=== PATIENT | male | born 1960 | race Caucasian/White ===

== ENCOUNTER 2024-01-26 10:52 | Inpatient (IN) | payer BC ==
--- OUTSIDE RECORDS SUMMARY | 2024-01-26 10:56 | XMS REPORT | Continuity of Care Document ---
Author Name Unknown Address [address] [facility] [place] [phone] [facility] thconnect Address [address] [facility] [place] [phone] Care Team Providers Care Special Events Planner Name Role Phone Mitchell Bolanos Attending Clinician Unavail able LAMAR CABRERA Attending Clinician Sherrie vailable CHRETIEN_F Attending Clinician Unavailable Iraj_Flavia Attending Clinician Unavailable WATERS_Lissa Attending Clinician Unavailable Libra Blanchard Attending Clinician [phone] TAINA Attending Clinician Unavailable KNOW, DOES_NOT Attending Clinician Unavailable Lamar Cabrera Attending Clinician [phone] KNOW, DOES_NOT Admitting Clinician Unavailable CHRETIEN_F Admitting Clinician Unavailable Iraj_Flavia Admitting Clinician Unavailable WATERS_S Admitting Clinician Unavailable TAINA Admitting Clinician Unavailable Payers Payer Name Policy Type Policy Number Effective Date Expirati on Date Source [place] [id number] 1 2020 00:00:00 [employer] [place] C1 [id number] [facility] Problems Condition Name Condition Details Condition Category Status Onset Date Resolution Date Last Treatment Date Treating Clinician Comments Source Diabetic peripheral neuropathy Diabetic Peripheral Neuropathy Problem Active 4 00:00: 00 [facility] Fatigue Fatigue Problem Active 417 00:00: 00 [facility] Acute sinusitis Acute Sinusitis Problem Active 02-15 00:00: 00 [facility] Radiograph ic calcificat ion Radiograph ic Calcificat ion Problem Active 2021-11 025 00:00: 00 [facility] Hyperchole sterolemia Hyperchole sterolemia Problem Active 2021-11 017 00:00: 00 [facility] Mixed anxiety and depressive disorder Mixed Anxiety and Depressive Disorder Problem Active 2021-11 017 00:00: 00 [facility] Tinnitus Tinnitus Problem Active 2021-11 017 00:00: 00 [facility] Seasonal allergy Seasonal Allergy Problem Active 2021-11 017 00:00: 00 [facility] Dizziness Dizziness Problem Active 2021-11 017 00:00: 00 [facility] Chest pain Chest Pain Problem Active 2021-11 017 00:00: 00 [facility] Pain in right hip joint Pain in Right Hip Joint Problem Active 2021-11 017 00:00: 00 [facility] Anxiety Anxiety Problem Active 2019-11 207 00:00: 00 [facility] Diabetes mellitus Diabetes Mellitus Problem Active 4-15 00:00: 00 [facility] Hyperlipid emia Hyperlipid emia Problem Active 4-13 00:00: 00 [facility] Essential hypertensi on Essential Hypertensi on Problem Active 4-08 00:00: 00 [facility] [id number] Primary osteoarthr itis of right knee Problem Active [facility] [id number] Primary osteoarthr itis of left knee Problem Active [facility] Allergies, Adverse Reactions, Alerts Allergy Name Allergy Type Status Severity Reaction(s) Onset Date Inactive Date Treating Clinician Comments Source codeine DA Active U UNKNOWN 08-16 00:00: 00 [facility] [place] penicill in V DA Active U UNKNOWN 08-16 00:00: 00 [facility] [place] Sulfa (Sulfona mide Antibiot ics) DA Active U 08-16 00:00: 00 [facility] [place] codeine DA Active U 08-16 00:00: 00 [facility] [place] penicill in V DA Active U 08-16 00:00: 00 [facility] [place] Sulfa (Sulfona mide Antibiot ics) DA Active U UNKNOWN 08-16 00:00: 00 [facility] [place] Social History Social Habit Start Date Stop Date Quantity Comments Source Sex Assigned At [facility] History of Tobacco Use [facility] Smoking Status Start Date Stop Date Source Never Smoker [facility] Medications Ordered Medication Name Filled Medication Name Start Date Stop Date Current Medication? Ordering Clinician Indication Dosage Frequency Signature (SIG) Comments Components Source Bystolic Bystolic No Bystolic Gabapentin Gabapentin No Gabapentin Lisinopril Lisinopril No Lisinopril cetirizine 10 mg tablet TAKE 1 TABLET BY MOUTH ONCE DAILY FOR 90 DAYS cetirizine 10 mg tablet TAKE 1 TABLET BY MOUTH ONCE DAILY FOR 90 DAYS No cetirizine 10 mg tablet TAKE 1 TABLET BY MOUTH ONCE DAILY FOR 90 DAYS [facility] escitalopra m 10 mg tablet TAKE 1 TABLET BY MOUTH ONCE DAILY FOR 90 DAYS escitalopra m 10 mg tablet TAKE 1 TABLET BY MOUTH ONCE DAILY FOR 90 DAYS No escitalopr am 10 mg tablet TAKE 1 TABLET BY MOUTH ONCE DAILY FOR 90 DAYS [facility] Farxiga 10 mg tablet Farxiga 10 mg tablet No Farxiga 10 mg tablet [facility] fluconazole 150 mg tablet TAKE 1 TABLET BY MOUTH ONCE A WEEK fluconazole 150 mg tablet TAKE 1 TABLET BY MOUTH ONCE A WEEK No fluconazol e 150 mg tablet TAKE 1 TABLET BY MOUTH ONCE A WEEK [facility] fluticasone propionate 50 mcg/actuati on nasal spray,suspe nsion USE 1 SPRAY(S) IN EACH NOSTRIL ONCE DAILY fluticasone propionate 50 mcg/actuati on nasal spray,suspe nsion USE 1 SPRAY(S) IN EACH NOSTRIL ONCE DAILY No fluticason e propionate 50 mcg/actuat ion nasal spray,susp ension USE 1 SPRAY(S) IN EACH NOSTRIL ONCE DAILY [facility] Humalog Mix 75-25 KwikPen U-100 insulin 100 unit/mL subcutaneou s pen INJECT 30 UNITS SUBCUTANEOU SLY TWICE DAILY DIRECTED Humalog Mix 75-25 KwikPen U-100 insulin 100 unit/mL subcutaneou s pen INJECT 30 UNITS SUBCUTANEOU SLY TWICE DAILY DIRECTED No Humalog Mix 75-25 KwikPen U-100 insulin 100 unit/mL subcutaneo us pen INJECT 30 UNITS SUBCUTANEO USLY TWICE DAILY DIRECTED [facility] lisinopril 10 mg tablet lisinopril 10 mg tablet No lisinopril 10 mg tablet [facility] magnesium oxide 400 mg (241.3 mg magnesium) tablet TAKE 1 TABLET BY MOUTH ONCE DAILY AT BEDTIME magnesium oxide 400 mg (241.3 mg magnesium) tablet TAKE 1 TABLET BY MOUTH ONCE DAILY AT BEDTIME No magnesium oxide 400 mg (241.3 mg magnesium) tablet TAKE 1 TABLET BY MOUTH ONCE DAILY AT BEDTIME [facility] montelukast 10 mg tablet TAKE 1 TABLET BY MOUTH ONCE DAILY DIRECTED FOR 90 DAYS montelukast 10 mg tablet TAKE 1 TABLET BY MOUTH ONCE DAILY DIRECTED FOR 90 DAYS No montelukas t 10 mg tablet TAKE 1 TABLET BY MOUTH ONCE DAILY DIRECTED FOR 90 DAYS [facility] nebivolol 5 mg tablet TAKE 1 TABLET BY MOUTH ONCE DAILY IN THE MORNING nebivolol 5 mg tablet TAKE 1 TABLET BY MOUTH ONCE DAILY IN THE MORNING No nebivolol 5 mg tablet TAKE 1 TABLET BY MOUTH ONCE DAILY IN THE MORNING [facility] rosuvastati n 40 mg tablet TAKE 1 TABLET BY MOUTH ONCE DAILY IN THE EVENING FOR 90 DAYS rosuvastati n 40 mg tablet TAKE 1 TABLET BY MOUTH ONCE DAILY IN THE EVENING FOR 90 DAYS No rosuvastat in 40 mg tablet TAKE 1 TABLET BY MOUTH ONCE DAILY IN THE EVENING FOR 90 DAYS [facility] Trulicity 1.5 mg/0.5 mL subcutaneou s pen injector INJECT 1 SYRINGE SUBCUTANEOU SLY ONCE A WEEK Trulicity 1.5 mg/0.5 mL subcutaneou s pen injector INJECT 1 SYRINGE SUBCUTANEOU SLY ONCE A WEEK No Trulicity 1.5 mg/0.5 mL subcutaneo us pen injector INJECT 1 SYRINGE SUBCUTANEO USLY ONCE A WEEK [facility] cetirizine 10 mg tablet TAKE 1 TABLET BY MOUTH ONCE DAILY FOR 90 DAYS cetirizine 10 mg tablet TAKE 1 TABLET BY MOUTH ONCE DAILY FOR 90 DAYS No cetirizine 10 mg tablet TAKE 1 TABLET BY MOUTH ONCE DAILY FOR 90 DAYS [facility] escitalopra m 10 mg tablet TAKE 1 TABLET BY MOUTH ONCE DAILY FOR 90 DAYS escitalopra m 10 mg tablet TAKE 1 TABLET BY MOUTH ONCE DAILY FOR 90 DAYS No escitalopr am 10 mg tablet TAKE 1 TABLET BY MOUTH ONCE DAILY FOR 90 DAYS [facility] Farxiga 10 mg tablet Farxiga 10 mg tablet No Farxiga 10 mg tablet [facility] fluconazole 150 mg tablet TAKE 1 TABLET BY MOUTH ONCE A WEEK fluconazole 150 mg tablet TAKE 1 TABLET BY MOUTH ONCE A WEEK No fluconazol e 150 mg tablet TAKE 1 TABLET BY MOUTH ONCE A WEEK [facility] fluticasone propionate 50 mcg/actuati on nasal spray,suspe nsion USE 1 SPRAY(S) IN EACH NOSTRIL ONCE DAILY fluticasone propionate 50 mcg/actuati on nasal spray,suspe nsion USE 1 SPRAY(S) IN EACH NOSTRIL ONCE DAILY No fluticason e propionate 50 mcg/actuat ion nasal spray,susp ension USE 1 SPRAY(S) IN EACH NOSTRIL ONCE DAILY [facility] Humalog Mix 75-25 KwikPen U-100 insulin 100 unit/mL subcutaneou s pen INJECT 30 UNITS SUBCUTANEOU SLY TWICE DAILY DIRECTED Humalog Mix 75-25 KwikPen U-100 insulin 100 unit/mL subcutaneou s pen INJECT 30 UNITS SUBCUTANEOU SLY TWICE DAILY DIRECTED No Humalog Mix 75-25 KwikPen U-100 insulin 100 unit/mL subcutaneo us pen INJECT 30 UNITS SUBCUTANEO USLY TWICE DAILY DIRECTED [facility] lisinopril 10 mg tablet lisinopril 10 mg tablet No lisinopril 10 mg tablet [facility] magnesium oxide 400 mg (241.3 mg magnesium) tablet TAKE 1 TABLET BY MOUTH ONCE DAILY AT BEDTIME magnesium oxide 400 mg (241.3 mg magnesium) tablet TAKE 1 TABLET BY MOUTH ONCE DAILY AT BEDTIME No magnesium oxide 400 mg (241.3 mg magnesium) tablet TAKE 1 TABLET BY MOUTH ONCE DAILY AT BEDTIME [facility] montelukast 10 mg tablet TAKE 1 TABLET BY MOUTH ONCE DAILY DIRECTED FOR 90 DAYS montelukast 10 mg tablet TAKE 1 TABLET BY MOUTH ONCE DAILY DIRECTED FOR 90 DAYS No montelukas t 10 mg tablet TAKE 1 TABLET BY MOUTH ONCE DAILY DIRECTED FOR 90 DAYS [facility] nebivolol 5 mg tablet TAKE 1 TABLET BY MOUTH ONCE DAILY IN THE MORNING nebivolol 5 mg tablet TAKE 1 TABLET BY MOUTH ONCE DAILY IN THE MORNING No nebivolol 5 mg tablet TAKE 1 TABLET BY MOUTH ONCE DAILY IN THE MORNING [facility] rosuvastati n 40 mg tablet TAKE 1 TABLET BY MOUTH ONCE DAILY IN THE EVENING FOR 90 DAYS rosuvastati n 40 mg tablet TAKE 1 TABLET BY MOUTH ONCE DAILY IN THE EVENING FOR 90 DAYS No rosuvastat in 40 mg tablet TAKE 1 TABLET BY MOUTH ONCE DAILY IN THE EVENING FOR 90 DAYS [facility] Trulicity 1.5 mg/0.5 mL subcutaneou s pen injector INJECT 1 SYRINGE SUBCUTANEOU SLY ONCE A WEEK Trulicity 1.5 mg/0.5 mL subcutaneou s pen injector INJECT 1 SYRINGE SUBCUTANEOU SLY ONCE A WEEK No Trulicity 1.5 mg/0.5 mL subcutaneo us pen injector INJECT 1 SYRINGE SUBCUTANEO USLY ONCE A WEEK [facility] cetirizine 10 mg tablet TAKE 1 TABLET BY MOUTH ONCE DAILY FOR 90 DAYS cetirizine 10 mg tablet TAKE 1 TABLET BY MOUTH ONCE DAILY FOR 90 DAYS No cetirizine 10 mg tablet TAKE 1 TABLET BY MOUTH ONCE DAILY FOR 90 DAYS [facility] escitalopra m 10 mg tablet TAKE 1 TABLET BY MOUTH ONCE DAILY FOR 90 DAYS escitalopra m 10 mg tablet TAKE 1 TABLET BY MOUTH ONCE DAILY FOR 90 DAYS No escitalopr am 10 mg tablet TAKE 1 TABLET BY MOUTH ONCE DAILY FOR 90 DAYS [facility] Farxiga 10 mg tablet Farxiga 10 mg tablet No Farxiga 10 mg tablet [facility] fluconazole 150 mg tablet TAKE 1 TABLET BY MOUTH ONCE A WEEK fluconazole 150 mg tablet TAKE 1 TABLET BY MOUTH ONCE A WEEK No fluconazol e 150 mg tablet TAKE 1 TABLET BY MOUTH ONCE A WEEK [facility] fluticasone propionate 50 mcg/actuati on nasal spray,suspe nsion USE 1 SPRAY(S) IN EACH NOSTRIL ONCE DAILY fluticasone propionate 50 mcg/actuati on nasal spray,suspe nsion USE 1 SPRAY(S) IN EACH NOSTRIL ONCE DAILY No fluticason e propionate 50 mcg/actuat ion nasal spray,susp ension USE 1 SPRAY(S) IN EACH NOSTRIL ONCE DAILY [facility] Humalog Mix 75-25 KwikPen U-100 insulin 100 unit/mL subcutaneou s pen INJECT 30 UNITS SUBCUTANEOU SLY TWICE DAILY DIRECTED Humalog Mix 75-25 KwikPen U-100 insulin 100 unit/mL subcutaneou s pen INJECT 30 UNITS SUBCUTANEOU SLY TWICE DAILY DIRECTED No Humalog Mix 75-25 KwikPen U-100 insulin 100 unit/mL subcutaneo us pen INJECT 30 UNITS SUBCUTANEO USLY TWICE DAILY DIRECTED [facility] lisinopril 10 mg tablet lisinopril 10 mg tablet No lisinopril 10 mg tablet [facility] magnesium oxide 400 mg (241.3 mg magnesium) tablet TAKE 1 TABLET BY MOUTH ONCE DAILY AT BEDTIME magnesium oxide 400 mg (241.3 mg magnesium) tablet TAKE 1 TABLET BY MOUTH ONCE DAILY AT BEDTIME No magnesium oxide 400 mg (241.3 mg magnesium) tablet TAKE 1 TABLET BY MOUTH ONCE DAILY AT BEDTIME [facility] montelukast 10 mg tablet TAKE 1 TABLET BY MOUTH ONCE DAILY DIRECTED FOR 90 DAYS montelukast 10 mg tablet TAKE 1 TABLET BY MOUTH ONCE DAILY DIRECTED FOR 90 DAYS No montelukas t 10 mg tablet TAKE 1 TABLET BY MOUTH ONCE DAILY DIRECTED FOR 90 DAYS [facility] nebivolol 5 mg tablet TAKE 1 TABLET BY MOUTH ONCE DAILY IN THE MORNING nebivolol 5 mg tablet TAKE 1 TABLET BY MOUTH ONCE DAILY IN THE MORNING No nebivolol 5 mg tablet TAKE 1 TABLET BY MOUTH ONCE DAILY IN THE MORNING [facility] rosuvastati n 40 mg tablet TAKE 1 TABLET BY MOUTH ONCE DAILY IN THE EVENING FOR 90 DAYS rosuvastati n 40 mg tablet TAKE 1 TABLET BY MOUTH ONCE DAILY IN THE EVENING FOR 90 DAYS No rosuvastat in 40 mg tablet TAKE 1 TABLET BY MOUTH ONCE DAILY IN THE EVENING FOR 90 DAYS [facility] Trulicity 1.5 mg/0.5 mL subcutaneou s pen injector INJECT 1 SYRINGE SUBCUTANEOU SLY ONCE A WEEK Trulicity 1.5 mg/0.5 mL subcutaneou s pen injector INJECT 1 SYRINGE SUBCUTANEOU SLY ONCE A WEEK No Trulicity 1.5 mg/0.5 mL subcutaneo us pen injector INJECT 1 SYRINGE SUBCUTANEO USLY ONCE A WEEK [facility] Bystolic 5 mg tablet TAKE 1 TABLET BY MOUTH ONCE DAILY IN THE MORNING Bystolic 5 mg tablet TAKE 1 TABLET BY MOUTH ONCE DAILY IN THE MORNING No Bystolic 5 mg tablet TAKE 1 TABLET BY MOUTH ONCE DAILY IN THE MORNING [facility] Humalog Mix 75-25 KwikPen U-100 insulin 100 unit/mL subcutaneou s pen INJECT 26 UNITS SUBCUTANEOU SLY TWICE DAILY DIRECTED Humalog Mix 75-25 KwikPen U-100 insulin 100 unit/mL subcutaneou s pen INJECT 26 UNITS SUBCUTANEOU SLY TWICE DAILY DIRECTED No Humalog Mix 75-25 KwikPen U-100 insulin 100 unit/mL subcutaneo us pen INJECT 26 UNITS SUBCUTANEO USLY TWICE DAILY DIRECTED [facility] lisinopril 10 mg tablet Take 1 tablet by mouth once daily lisinopril 10 mg tablet Take 1 tablet by mouth once daily No lisinopril 10 mg tablet Take 1 tablet by mouth once daily [facility] meclizine 12.5 mg tablet Take 1 tablet every 6-8 hours by oral route as needed for 10 days. meclizine 12.5 mg tablet Take 1 tablet every 6-8 hours by oral route as needed for 10 days. No 1 Q7H meclizine 12.5 mg tablet Take 1 tablet every 6-8 hours by oral route as needed for 10 days. [facility] metformin 1,000 mg tablet TAKE 1 TABLET BY MOUTH TWICE DAILY DIRECTED metformin 1,000 mg tablet TAKE 1 TABLET BY MOUTH TWICE DAILY DIRECTED No metformin 1,000 mg tablet TAKE 1 TABLET BY MOUTH TWICE DAILY DIRECTED [facility] montelukast 10 mg tablet Take 1 tablet every day by oral route as directed for 90 days. montelukast 10 mg tablet Take 1 tablet every day by oral route as directed for 90 days. No 1 Q1D montelukas t 10 mg tablet Take 1 tablet every day by oral route as directed for 90 days. [facility] nitrofurant oin monohydrate /macrocryst als 100 mg capsule Take 1 capsule every 12 hours by oral route as directed. nitrofurant oin monohydrate /macrocryst als 100 mg capsule Take 1 capsule every 12 hours by oral route as directed. No 1capsul e(s) Q12H nitrofuran toin monohydrat e/macrocry stals 100 mg capsule Take 1 capsule every 12 hours by oral route as directed. [facility] paroxetine 20 mg tablet TAKE 1 TABLET BY MOUTH ONCE DAILY IN THE MORNING FOR 90 DAYS paroxetine 20 mg tablet TAKE 1 TABLET BY MOUTH ONCE DAILY IN THE MORNING FOR 90 DAYS No paroxetine 20 mg tablet TAKE 1 TABLET BY MOUTH ONCE DAILY IN THE MORNING FOR 90 DAYS [facility] pregabalin 75 mg capsule Take 1 capsule every day by oral route as directed for 30 days. pregabalin 75 mg capsule Take 1 capsule every day by oral route as directed for 30 days. No 1capsul e(s) Q1D pregabalin 75 mg capsule Take 1 capsule every day by oral route as directed for 30 days. [facility] rosuvastati n 20 mg tablet TAKE 1 TABLET BY MOUTH ONCE DAILY DIRECTED FOR 90 DAYS rosuvastati n 20 mg tablet TAKE 1 TABLET BY MOUTH ONCE DAILY DIRECTED FOR 90 DAYS No rosuvastat in 20 mg tablet TAKE 1 TABLET BY MOUTH ONCE DAILY DIRECTED FOR 90 DAYS [facility] Trulicity 1.5 mg/0.5 mL subcutaneou s pen injector INJECT 1 SYRINGE SUBCUTANEOU SLY ONCE A WEEK Trulicity 1.5 mg/0.5 mL subcutaneou s pen injector INJECT 1 SYRINGE SUBCUTANEOU SLY ONCE A WEEK No Trulicity 1.5 mg/0.5 mL subcutaneo us pen injector INJECT 1 SYRINGE SUBCUTANEO USLY ONCE A WEEK [facility] Bystolic 5 mg tablet TAKE 1 TABLET BY MOUTH ONCE DAILY IN THE MORNING Bystolic 5 mg tablet TAKE 1 TABLET BY MOUTH ONCE DAILY IN THE MORNING No Bystolic 5 mg tablet TAKE 1 TABLET BY MOUTH ONCE DAILY IN THE MORNING [facility] Humalog Mix 75-25 KwikPen U-100 insulin 100 unit/mL subcutaneou s pen INJECT 26 UNITS SUBCUTANEOU SLY TWICE DAILY DIRECTED Humalog Mix 75-25 KwikPen U-100 insulin 100 unit/mL subcutaneou s pen INJECT 26 UNITS SUBCUTANEOU SLY TWICE DAILY DIRECTED No Humalog Mix 75-25 KwikPen U-100 insulin 100 unit/mL subcutaneo us pen INJECT 26 UNITS SUBCUTANEO USLY TWICE DAILY DIRECTED [facility] lisinopril 10 mg tablet Take 1 tablet by mouth once daily lisinopril 10 mg tablet Take 1 tablet by mouth once daily No lisinopril 10 mg tablet Take 1 tablet by mouth once daily [facility] meclizine 12.5 mg tablet Take 1 tablet every 6-8 hours by oral route as needed for 10 days. meclizine 12.5 mg tablet Take 1 tablet every 6-8 hours by oral route as needed for 10 days. No 1 Q7H meclizine 12.5 mg tablet Take 1 tablet every 6-8 hours by oral route as needed for 10 days. [facility] metformin 1,000 mg tablet TAKE 1 TABLET BY MOUTH TWICE DAILY DIRECTED metformin 1,000 mg tablet TAKE 1 TABLET BY MOUTH TWICE DAILY DIRECTED No metformin 1,000 mg tablet TAKE 1 TABLET BY MOUTH TWICE DAILY DIRECTED [facility] montelukast 10 mg tablet Take 1 tablet every day by oral route as directed for 90 days. montelukast 10 mg tablet Take 1 tablet every day by oral route as directed for 90 days. No 1 Q1D montelukas t 10 mg tablet Take 1 tablet every day by oral route as directed for 90 days. [facility] nitrofurant oin monohydrate /macrocryst als 100 mg capsule Take 1 capsule every 12 hours by oral route as directed. nitrofurant oin monohydrate /macrocryst als 100 mg capsule Take 1 capsule every 12 hours by oral route as directed. No 1capsul e(s) Q12H nitrofuran toin monohydrat e/macrocry stals 100 mg capsule Take 1 capsule every 12 hours by oral route as directed. [facility] paroxetine 20 mg tablet TAKE 1 TABLET BY MOUTH ONCE DAILY IN THE MORNING FOR 90 DAYS paroxetine 20 mg tablet TAKE 1 TABLET BY MOUTH ONCE DAILY IN THE MORNING FOR 90 DAYS No paroxetine 20 mg tablet TAKE 1 TABLET BY MOUTH ONCE DAILY IN THE MORNING FOR 90 DAYS [facility] pregabalin 75 mg capsule Take 1 capsule every day by oral route as directed for 30 days. pregabalin 75 mg capsule Take 1 capsule every day by oral route as directed for 30 days. No 1capsul e(s) Q1D pregabalin 75 mg capsule Take 1 capsule every day by oral route as directed for 30 days. [facility] rosuvastati n 20 mg tablet TAKE 1 TABLET BY MOUTH ONCE DAILY DIRECTED FOR 90 DAYS rosuvastati n 20 mg tablet TAKE 1 TABLET BY MOUTH ONCE DAILY DIRECTED FOR 90 DAYS No rosuvastat in 20 mg tablet TAKE 1 TABLET BY MOUTH ONCE DAILY DIRECTED FOR 90 DAYS [facility] Trulicity 1.5 mg/0.5 mL subcutaneou s pen injector INJECT 1 SYRINGE SUBCUTANEOU SLY ONCE A WEEK Trulicity 1.5 mg/0.5 mL subcutaneou s pen injector INJECT 1 SYRINGE SUBCUTANEOU SLY ONCE A WEEK No Trulicity 1.5 mg/0.5 mL subcutaneo us pen injector INJECT 1 SYRINGE SUBCUTANEO USLY ONCE A WEEK [facility] Bystolic 5 mg tablet TAKE 1 TABLET BY MOUTH ONCE DAILY IN THE MORNING Bystolic 5 mg tablet TAKE 1 TABLET BY MOUTH ONCE DAILY IN THE MORNING No Bystolic 5 mg tablet TAKE 1 TABLET BY MOUTH ONCE DAILY IN THE MORNING [facility] Humalog Mix 75-25 KwikPen U-100 insulin 100 unit/mL subcutaneou s pen INJECT 26 UNITS SUBCUTANEOU SLY TWICE DAILY DIRECTED Humalog Mix 75-25 KwikPen U-100 insulin 100 unit/mL subcutaneou s pen INJECT 26 UNITS SUBCUTANEOU SLY TWICE DAILY DIRECTED No Humalog Mix 75-25 KwikPen U-100 insulin 100 unit/mL subcutaneo us pen INJECT 26 UNITS SUBCUTANEO USLY TWICE DAILY DIRECTED [facility] lisinopril 10 mg tablet TAKE 1 TABLET BY MOUTH ONCE DAILY lisinopril 10 mg tablet TAKE 1 TABLET BY MOUTH ONCE DAILY No lisinopril 10 mg tablet TAKE 1 TABLET BY MOUTH ONCE DAILY [facility] meclizine 12.5 mg tablet TAKE 1 TABLET BY MOUTH EVERY 6 TO 8 HOURS NEEDED FOR 10 DAYS meclizine 12.5 mg tablet TAKE 1 TABLET BY MOUTH EVERY 6 TO 8 HOURS NEEDED FOR 10 DAYS No meclizine 12.5 mg tablet TAKE 1 TABLET BY MOUTH EVERY 6 TO 8 HOURS NEEDED FOR 10 DAYS [facility] metformin 1,000 mg tablet TAKE 1 TABLET BY MOUTH TWICE DAILY DIRECTED metformin 1,000 mg tablet TAKE 1 TABLET BY MOUTH TWICE DAILY DIRECTED No metformin 1,000 mg tablet TAKE 1 TABLET BY MOUTH TWICE DAILY DIRECTED [facility] montelukast 10 mg tablet TAKE 1 TABLET BY MOUTH ONCE DAILY DIRECTED FOR 90 DAYS montelukast 10 mg tablet TAKE 1 TABLET BY MOUTH ONCE DAILY DIRECTED FOR 90 DAYS No montelukas t 10 mg tablet TAKE 1 TABLET BY MOUTH ONCE DAILY DIRECTED FOR 90 DAYS [facility] paroxetine 20 mg tablet TAKE 1 TABLET BY MOUTH ONCE DAILY IN THE MORNING paroxetine 20 mg tablet TAKE 1 TABLET BY MOUTH ONCE DAILY IN THE MORNING No paroxetine 20 mg tablet TAKE 1 TABLET BY MOUTH ONCE DAILY IN THE MORNING [facility] pregabalin 75 mg capsule TAKE 1 CAPSULE BY MOUTH ONCE DAILY pregabalin 75 mg capsule TAKE 1 CAPSULE BY MOUTH ONCE DAILY No pregabalin 75 mg capsule TAKE 1 CAPSULE BY MOUTH ONCE DAILY [facility] rosuvastati n 20 mg tablet TAKE 1 TABLET BY MOUTH ONCE DAILY DIRECTED FOR 90 DAYS rosuvastati n 20 mg tablet TAKE 1 TABLET BY MOUTH ONCE DAILY DIRECTED FOR 90 DAYS No rosuvastat in 20 mg tablet TAKE 1 TABLET BY MOUTH ONCE DAILY DIRECTED FOR 90 DAYS [facility] rosuvastati n 40 mg tablet Take 1 tablet every day by oral route in the evening for 90 days. rosuvastati n 40 mg tablet Take 1 tablet every day by oral route in the evening for 90 days. No 1 Q1D rosuvastat in 40 mg tablet Take 1 tablet every day by oral route in the evening for 90 days. [facility] Trulicity 1.5 mg/0.5 mL subcutaneou s pen injector INJECT 1 PREFILLED SYRINGE SUBCUTANEOU SLY ONCE A WEEK Trulicity 1.5 mg/0.5 mL subcutaneou s pen injector INJECT 1 PREFILLED SYRINGE SUBCUTANEOU SLY ONCE A WEEK No Trulicity 1.5 mg/0.5 mL subcutaneo us pen injector INJECT 1 PREFILLED SYRINGE SUBCUTANEO USLY ONCE A WEEK [facility] Bystolic 5 mg tablet TAKE 1 TABLET BY MOUTH ONCE DAILY IN THE MORNING Bystolic 5 mg tablet TAKE 1 TABLET BY MOUTH ONCE DAILY IN THE MORNING No Bystolic 5 mg tablet TAKE 1 TABLET BY MOUTH ONCE DAILY IN THE MORNING [facility] Humalog Mix 75-25 KwikPen U-100 insulin 100 unit/mL subcutaneou s pen INJECT 26 UNITS SUBCUTANEOU SLY TWICE DAILY DIRECTED Humalog Mix 75-25 KwikPen U-100 insulin 100 unit/mL subcutaneou s pen INJECT 26 UNITS SUBCUTANEOU SLY TWICE DAILY DIRECTED No Humalog Mix 75-25 KwikPen U-100 insulin 100 unit/mL subcutaneo us pen INJECT 26 UNITS SUBCUTANEO USLY TWICE DAILY DIRECTED [facility] lisinopril 10 mg tablet TAKE 1 TABLET BY MOUTH ONCE DAILY lisinopril 10 mg tablet TAKE 1 TABLET BY MOUTH ONCE DAILY No lisinopril 10 mg tablet TAKE 1 TABLET BY MOUTH ONCE DAILY [facility] meclizine 12.5 mg tablet TAKE 1 TABLET BY MOUTH EVERY 6 TO 8 HOURS NEEDED FOR 10 DAYS meclizine 12.5 mg tablet TAKE 1 TABLET BY MOUTH EVERY 6 TO 8 HOURS NEEDED FOR 10 DAYS No meclizine 12.5 mg tablet TAKE 1 TABLET BY MOUTH EVERY 6 TO 8 HOURS NEEDED FOR 10 DAYS [facility] metformin 1,000 mg tablet TAKE 1 TABLET BY MOUTH TWICE DAILY DIRECTED metformin 1,000 mg tablet TAKE 1 TABLET BY MOUTH TWICE DAILY DIRECTED No metformin 1,000 mg tablet TAKE 1 TABLET BY MOUTH TWICE DAILY DIRECTED [facility] montelukast 10 mg tablet TAKE 1 TABLET BY MOUTH ONCE DAILY DIRECTED FOR 90 DAYS montelukast 10 mg tablet TAKE 1 TABLET BY MOUTH ONCE DAILY DIRECTED FOR 90 DAYS No montelukas t 10 mg tablet TAKE 1 TABLET BY MOUTH ONCE DAILY DIRECTED FOR 90 DAYS [facility] paroxetine 20 mg tablet TAKE 1 TABLET BY MOUTH ONCE DAILY IN THE MORNING paroxetine 20 mg tablet TAKE 1 TABLET BY MOUTH ONCE DAILY IN THE MORNING No paroxetine 20 mg tablet TAKE 1 TABLET BY MOUTH ONCE DAILY IN THE MORNING [facility] pregabalin 75 mg capsule TAKE 1 CAPSULE BY MOUTH ONCE DAILY pregabalin 75 mg capsule TAKE 1 CAPSULE BY MOUTH ONCE DAILY No pregabalin 75 mg capsule TAKE 1 CAPSULE BY MOUTH ONCE DAILY [facility] rosuvastati n 40 mg tablet Take 1 tablet every day by oral route in the evening for 90 days. rosuvastati n 40 mg tablet Take 1 tablet every day by oral route in the evening for 90 days. No 1 Q1D rosuvastat in 40 mg tablet Take 1 tablet every day by oral route in the evening for 90 days. [facility] Trulicity 1.5 mg/0.5 mL subcutaneou s pen injector INJECT 1 PREFILLED SYRINGE SUBCUTANEOU SLY ONCE A WEEK Trulicity 1.5 mg/0.5 mL subcutaneou s pen injector INJECT 1 PREFILLED SYRINGE SUBCUTANEOU SLY ONCE A WEEK No Trulicity 1.5 mg/0.5 mL subcutaneo us pen injector INJECT 1 PREFILLED SYRINGE SUBCUTANEO USLY ONCE A WEEK [facility] Bystolic 5 mg tablet TAKE 1 TABLET BY MOUTH ONCE DAILY IN THE MORNING Bystolic 5 mg tablet TAKE 1 TABLET BY MOUTH ONCE DAILY IN THE MORNING No Bystolic 5 mg tablet TAKE 1 TABLET BY MOUTH ONCE DAILY IN THE MORNING [facility] Humalog Mix 75-25 KwikPen U-100 insulin 100 unit/mL subcutaneou s pen INJECT 26 UNITS SUBCUTANEOU SLY TWICE DAILY DIRECTED Humalog Mix 75-25 KwikPen U-100 insulin 100 unit/mL subcutaneou s pen INJECT 26 UNITS SUBCUTANEOU SLY TWICE DAILY DIRECTED No Humalog Mix 75-25 KwikPen U-100 insulin 100 unit/mL subcutaneo us pen INJECT 26 UNITS SUBCUTANEO USLY TWICE DAILY DIRECTED [facility] ivermectin 3 mg tablet Take 1 tablet twice a day by oral route as directed for 5 days. ivermectin 3 mg tablet Take 1 tablet twice a day by oral route as directed for 5 days. No 1 BID ivermectin 3 mg tablet Take 1 tablet twice a day by oral route as directed for 5 days. [facility] lisinopril 10 mg tablet TAKE 1 TABLET BY MOUTH ONCE DAILY lisinopril 10 mg tablet TAKE 1 TABLET BY MOUTH ONCE DAILY No lisinopril 10 mg tablet TAKE 1 TABLET BY MOUTH ONCE DAILY [facility] meclizine 12.5 mg tablet TAKE 1 TABLET BY MOUTH EVERY 6 TO 8 HOURS NEEDED FOR 10 DAYS meclizine 12.5 mg tablet TAKE 1 TABLET BY MOUTH EVERY 6 TO 8 HOURS NEEDED FOR 10 DAYS No meclizine 12.5 mg tablet TAKE 1 TABLET BY MOUTH EVERY 6 TO 8 HOURS NEEDED FOR 10 DAYS [facility] metformin 1,000 mg tablet TAKE 1 TABLET BY MOUTH TWICE DAILY DIRECTED metformin 1,000 mg tablet TAKE 1 TABLET BY MOUTH TWICE DAILY DIRECTED No metformin 1,000 mg tablet TAKE 1 TABLET BY MOUTH TWICE DAILY DIRECTED [facility] montelukast 10 mg tablet TAKE 1 TABLET BY MOUTH ONCE DAILY DIRECTED FOR 90 DAYS montelukast 10 mg tablet TAKE 1 TABLET BY MOUTH ONCE DAILY DIRECTED FOR 90 DAYS No montelukas t 10 mg tablet TAKE 1 TABLET BY MOUTH ONCE DAILY DIRECTED FOR 90 DAYS [facility] paroxetine 20 mg tablet TAKE 1 TABLET BY MOUTH ONCE DAILY IN THE MORNING paroxetine 20 mg tablet TAKE 1 TABLET BY MOUTH ONCE DAILY IN THE MORNING No paroxetine 20 mg tablet TAKE 1 TABLET BY MOUTH ONCE DAILY IN THE MORNING [facility] prednisone 20 mg tablet Take 1 tablet twice a day by oral route as directed for 7 days. prednisone 20 mg tablet Take 1 tablet twice a day by oral route as directed for 7 days. No 1 BID prednisone 20 mg tablet Take 1 tablet twice a day by oral route as directed for 7 days. [facility] pregabalin 75 mg capsule Take 1 capsule by mouth once daily pregabalin 75 mg capsule Take 1 capsule by mouth once daily No pregabalin 75 mg capsule Take 1 capsule by mouth once daily [facility] rosuvastati n 40 mg tablet TAKE 1 TABLET BY MOUTH ONCE DAILY IN THE EVENING FOR 90 DAYS rosuvastati n 40 mg tablet TAKE 1 TABLET BY MOUTH ONCE DAILY IN THE EVENING FOR 90 DAYS No rosuvastat in 40 mg tablet TAKE 1 TABLET BY MOUTH ONCE DAILY IN THE EVENING FOR 90 DAYS [facility] Trulicity 1.5 mg/0.5 mL subcutaneou s pen injector INJECT 1 PREFILLED SYRINGE SUBCUTANEOU SLY ONCE A WEEK Trulicity 1.5 mg/0.5 mL subcutaneou s pen injector INJECT 1 PREFILLED SYRINGE SUBCUTANEOU SLY ONCE A WEEK No Trulicity 1.5 mg/0.5 mL subcutaneo us pen injector INJECT 1 PREFILLED SYRINGE SUBCUTANEO USLY ONCE A WEEK [facility] Zithromax Z-Charles 250 mg tablet TAKE 2 TABLETS (500 MG) BY ORAL ROUTE ONCE DAILY FOR 1 DAY THEN 1 TABLET (250 MG) BY ORAL ROUTE ONCE DAILY FOR 4 DAYS Zithromax Z-Charles 250 mg tablet TAKE 2 TABLETS (500 MG) BY ORAL ROUTE ONCE DAILY FOR 1 DAY THEN 1 TABLET (250 MG) BY ORAL ROUTE ONCE DAILY FOR 4 DAYS No Zithromax Z-Charles 250 mg tablet TAKE 2 TABLETS (500 MG) BY ORAL ROUTE ONCE DAILY FOR 1 DAY THEN 1 TABLET (250 MG) BY ORAL ROUTE ONCE DAILY FOR 4 DAYS [facility] escitalopra m 10 mg tablet Take 1 tablet every day by oral route for 90 days. escitalopra m 10 mg tablet Take 1 tablet every day by oral route for 90 days. No 1 Q1D escitalopr am 10 mg tablet Take 1 tablet every day by oral route for 90 days. [facility] Farxiga 5 mg tablet Take 1 tablet every day by oral route for 30 days. Farxiga 5 mg tablet Take 1 tablet every day by oral route for 30 days. No 1 Q1D Farxiga 5 mg tablet Take 1 tablet every day by oral route for 30 days. [facility] fluconazole 150 mg tablet Take 1 tablet every week by oral route. fluconazole 150 mg tablet Take 1 tablet every week by oral route. No 1 Q1W fluconazol e 150 mg tablet Take 1 tablet every week by oral route. [facility] gabapentin 600 mg tablet Take 1 tablet 3 times a day by oral route for 90 days. gabapentin 600 mg tablet Take 1 tablet 3 times a day by oral route for 90 days. No 1 TID gabapentin 600 mg tablet Take 1 tablet 3 times a day by oral route for 90 days. [facility] Humalog Mix 75-25 KwikPen U-100 insulin 100 unit/mL subcutaneou s pen INJECT 28 UNITS SUBCUTANEOU SLY TWICE DAILY DIRECTED Humalog Mix 75-25 KwikPen U-100 insulin 100 unit/mL subcutaneou s pen INJECT 28 UNITS SUBCUTANEOU SLY TWICE DAILY DIRECTED No Humalog Mix 75-25 KwikPen U-100 insulin 100 unit/mL subcutaneo us pen INJECT 28 UNITS SUBCUTANEO USLY TWICE DAILY DIRECTED [facility] lisinopril 10 mg tablet TAKE 1 TABLET BY MOUTH ONCE DAILY no more refills until you see libra blanchard. lisinopril 10 mg tablet TAKE 1 TABLET BY MOUTH ONCE DAILY no more refills until you see libra blanchard. No lisinopril 10 mg tablet TAKE 1 TABLET BY MOUTH ONCE DAILY no more refills until you see libra blanchard. [facility] magnesium 400 mg (as magnesium oxide) tablet Take 1 tablet every day by oral route at bedtime for 90 days. magnesium 400 mg (as magnesium oxide) tablet Take 1 tablet every day by oral route at bedtime for 90 days. No 1 Q1D magnesium 400 mg (as magnesium oxide) tablet Take 1 tablet every day by oral route at bedtime for 90 days. [facility] metformin 1,000 mg tablet TAKE 1 TABLET BY MOUTH TWICE DAILY DIRECTED metformin 1,000 mg tablet TAKE 1 TABLET BY MOUTH TWICE DAILY DIRECTED No metformin 1,000 mg tablet TAKE 1 TABLET BY MOUTH TWICE DAILY DIRECTED [facility] montelukast 10 mg tablet TAKE 1 TABLET BY MOUTH ONCE DAILY DIRECTED FOR 90 DAYS montelukast 10 mg tablet TAKE 1 TABLET BY MOUTH ONCE DAILY DIRECTED FOR 90 DAYS No montelukas t 10 mg tablet TAKE 1 TABLET BY MOUTH ONCE DAILY DIRECTED FOR 90 DAYS [facility] nebivolol 5 mg tablet TAKE 1 TABLET BY MOUTH ONCE DAILY IN THE MORNING nebivolol 5 mg tablet TAKE 1 TABLET BY MOUTH ONCE DAILY IN THE MORNING No nebivolol 5 mg tablet TAKE 1 TABLET BY MOUTH ONCE DAILY IN THE MORNING [facility] rosuvastati n 40 mg tablet TAKE 1 TABLET BY MOUTH ONCE DAILY IN THE EVENING FOR 90 DAYS rosuvastati n 40 mg tablet TAKE 1 TABLET BY MOUTH ONCE DAILY IN THE EVENING FOR 90 DAYS No rosuvastat in 40 mg tablet TAKE 1 TABLET BY MOUTH ONCE DAILY IN THE EVENING FOR 90 DAYS [facility] Trulicity 1.5 mg/0.5 mL subcutaneou s pen injector INJECT 1 PREFILLED SYRINGE SUBCUTANEOU SLY ONCE A WEEK Trulicity 1.5 mg/0.5 mL subcutaneou s pen injector INJECT 1 PREFILLED SYRINGE SUBCUTANEOU SLY ONCE A WEEK No Trulicity 1.5 mg/0.5 mL subcutaneo us pen injector INJECT 1 PREFILLED SYRINGE SUBCUTANEO USLY ONCE A WEEK [facility] BinaxNOW COVID-19 Ag Self Test kit Use as Directed on the Package BinaxNOW COVID-19 Ag Self Test kit Use as Directed on the Package No BinaxNOW COVID-19 Ag Self Test kit Use as Directed on the Package [facility] escitalopra m 10 mg tablet TAKE 1 TABLET BY MOUTH ONCE DAILY FOR 90 DAYS escitalopra m 10 mg tablet TAKE 1 TABLET BY MOUTH ONCE DAILY FOR 90 DAYS No escitalopr am 10 mg tablet TAKE 1 TABLET BY MOUTH ONCE DAILY FOR 90 DAYS [facility] Farxiga 5 mg tablet Take 1 tablet every day by oral route for 90 days. Farxiga 5 mg tablet Take 1 tablet every day by oral route for 90 days. No Farxiga 5 mg tablet Take 1 tablet every day by oral route for 90 days. [facility] Humalog Mix 75-25 KwikPen U-100 insulin 100 unit/mL subcutaneou s pen INJECT 30 UNITS SUBCUTANEOU SLY TWICE DAILY DIRECTED Humalog Mix 75-25 KwikPen U-100 insulin 100 unit/mL subcutaneou s pen INJECT 30 UNITS SUBCUTANEOU SLY TWICE DAILY DIRECTED No Humalog Mix 75-25 KwikPen U-100 insulin 100 unit/mL subcutaneo us pen INJECT 30 UNITS SUBCUTANEO USLY TWICE DAILY DIRECTED [facility] lisinopril 10 mg tablet Take 1 tablet by mouth once daily lisinopril 10 mg tablet Take 1 tablet by mouth once daily No lisinopril 10 mg tablet Take 1 tablet by mouth once daily [facility] magnesium 400 mg (as magnesium oxide) tablet Take 1 tablet every day by oral route at bedtime for 90 days. magnesium 400 mg (as magnesium oxide) tablet Take 1 tablet every day by oral route at bedtime for 90 days. No 1 Q1D magnesium 400 mg (as magnesium oxide) tablet Take 1 tablet every day by oral route at bedtime for 90 days. [facility] magnesium oxide 400 mg (241.3 mg magnesium) tablet TAKE 1 TABLET BY MOUTH ONCE DAILY AT BEDTIME magnesium oxide 400 mg (241.3 mg magnesium) tablet TAKE 1 TABLET BY MOUTH ONCE DAILY AT BEDTIME No magnesium oxide 400 mg (241.3 mg magnesium) tablet TAKE 1 TABLET BY MOUTH ONCE DAILY AT BEDTIME [facility] montelukast 10 mg tablet TAKE 1 TABLET BY MOUTH ONCE DAILY DIRECTED FOR 90 DAYS montelukast 10 mg tablet TAKE 1 TABLET BY MOUTH ONCE DAILY DIRECTED FOR 90 DAYS No montelukas t 10 mg tablet TAKE 1 TABLET BY MOUTH ONCE DAILY DIRECTED FOR 90 DAYS [facility] nebivolol 5 mg tablet TAKE 1 TABLET BY MOUTH ONCE DAILY IN THE MORNING nebivolol 5 mg tablet TAKE 1 TABLET BY MOUTH ONCE DAILY IN THE MORNING No nebivolol 5 mg tablet TAKE 1 TABLET BY MOUTH ONCE DAILY IN THE MORNING [facility] rosuvastati n 40 mg tablet TAKE 1 TABLET BY MOUTH ONCE DAILY IN THE EVENING FOR 90 DAYS rosuvastati n 40 mg tablet TAKE 1 TABLET BY MOUTH ONCE DAILY IN THE EVENING FOR 90 DAYS No rosuvastat in 40 mg tablet TAKE 1 TABLET BY MOUTH ONCE DAILY IN THE EVENING FOR 90 DAYS [facility] Trulicity 1.5 mg/0.5 mL subcutaneou s pen injector INJECT 1 PREFILLED SYRINGE SUBCUTANEOU SLY ONCE A WEEK Trulicity 1.5 mg/0.5 mL subcutaneou s pen injector INJECT 1 PREFILLED SYRINGE SUBCUTANEOU SLY ONCE A WEEK No Trulicity 1.5 mg/0.5 mL subcutaneo us pen injector INJECT 1 PREFILLED SYRINGE SUBCUTANEO USLY ONCE A WEEK [facility] BinaxNOW COVID-19 Ag Self Test kit Use [facility] Use as [facility] the Package [facility] Ag Self Test kit Use as Directed on the Package [facility] cetirizine 10 mg tablet Take 1 tablet every day by oral route for 90 days. cetirizine 10 mg tablet Take 1 tablet every day by oral route for 90 days. No 1 Q1D cetirizine 10 mg tablet Take 1 tablet every day by oral route for 90 days. [facility] escitalopra m 10 mg tablet TAKE 1 TABLET BY MOUTH ONCE DAILY FOR 90 DAYS escitalopra m 10 mg tablet TAKE 1 TABLET BY MOUTH ONCE DAILY FOR 90 DAYS No escitalopr am 10 mg tablet TAKE 1 TABLET BY MOUTH ONCE DAILY FOR 90 DAYS [facility] Farxiga 5 mg tablet Take 1 tablet every day by oral route for 90 days. Farxiga 5 mg tablet Take 1 tablet every day by oral route for 90 days. No Farxiga 5 mg tablet Take 1 tablet every day by oral route for 90 days. [facility] fluticasone propionate 50 mcg/actuati on nasal spray,suspe nsion Caroline 1 spray every day by intranasal route. fluticasone propionate 50 mcg/actuati on nasal spray,suspe nsion Caroline 1 spray every day by intranasal route. No 1spray( s) Q1D fluticason e propionate 50 mcg/actuat ion nasal spray,susp ension Caroline 1 spray every day by intranasal route. [facility] Humalog Mix 75-25 KwikPen U-100 insulin 100 unit/mL subcutaneou s pen INJECT 30 UNITS SUBCUTANEOU SLY TWICE DAILY DIRECTED Humalog Mix 75-25 KwikPen U-100 insulin 100 unit/mL subcutaneou s pen INJECT 30 UNITS SUBCUTANEOU SLY TWICE DAILY DIRECTED No Humalog Mix 75-25 KwikPen U-100 insulin 100 unit/mL subcutaneo us pen INJECT 30 UNITS SUBCUTANEO USLY TWICE DAILY DIRECTED [facility] magnesium 400 mg (as magnesium oxide) tablet Take 1 tablet every day by oral route at bedtime for 90 days. magnesium 400 mg (as magnesium oxide) tablet Take 1 tablet every day by oral route at bedtime for 90 days. No 1 Q1D magnesium 400 mg (as magnesium oxide) tablet Take 1 tablet every day by oral route at bedtime for 90 days. [facility] nebivolol 5 mg tablet TAKE 1 TABLET BY MOUTH ONCE DAILY IN THE MORNING nebivolol 5 mg tablet TAKE 1 TABLET BY MOUTH ONCE DAILY IN THE MORNING No nebivolol 5 mg tablet TAKE 1 TABLET BY MOUTH ONCE DAILY IN THE MORNING [facility] rosuvastati n 40 mg tablet TAKE 1 TABLET BY MOUTH ONCE DAILY IN THE EVENING FOR 90 DAYS rosuvastati n 40 mg tablet TAKE 1 TABLET BY MOUTH ONCE DAILY IN THE EVENING FOR 90 DAYS No rosuvastat in 40 mg tablet TAKE 1 TABLET BY MOUTH ONCE DAILY IN THE EVENING FOR 90 DAYS [facility] Zithromax Z-Charles 250 mg tablet TAKE 2 TABLETS (500 MG) BY ORAL ROUTE ONCE DAILY FOR 1 DAY THEN 1 TABLET (250 MG) BY ORAL ROUTE ONCE DAILY FOR 4 DAYS Zithromax Z-Charles 250 mg tablet TAKE 2 TABLETS (500 MG) BY ORAL ROUTE ONCE DAILY FOR 1 DAY THEN 1 TABLET (250 MG) BY ORAL ROUTE ONCE DAILY FOR 4 DAYS No Zithromax Z-Charles 250 mg tablet TAKE 2 TABLETS (500 MG) BY ORAL ROUTE ONCE DAILY FOR 1 DAY THEN 1 TABLET (250 MG) BY ORAL ROUTE ONCE DAILY FOR 4 DAYS [facility] BinaxNOW COVID-19 Ag Self Test kit Use as Directed on the Package BinaxNO COVID-19 Ag Self Test kit Use as Directed on the Package No BinaxNO COVID-19 Ag Self Test kit Use as Directed on the Package [facility] cetirizine 10 mg tablet TAKE 1 TABLET BY MOUTH ONCE DAILY FOR 90 DAYS cetirizine 10 mg tablet TAKE 1 TABLET BY MOUTH ONCE DAILY FOR 90 DAYS No cetirizine 10 mg tablet TAKE 1 TABLET BY MOUTH ONCE DAILY FOR 90 DAYS [facility] escitalopra m 10 mg tablet TAKE 1 TABLET BY MOUTH ONCE DAILY FOR 90 DAYS escitalopra m 10 mg tablet TAKE 1 TABLET BY MOUTH ONCE DAILY FOR 90 DAYS No escitalopr am 10 mg tablet TAKE 1 TABLET BY MOUTH ONCE DAILY FOR 90 DAYS [facility] Farxiga 10 mg tablet Take 1 tablet every day by oral route. Farxiga 10 mg tablet Take 1 tablet every day by oral route. No 1 Q1D Farxiga 10 mg tablet Take 1 tablet every day by oral route. [facility] fluticasone propionate 50 mcg/actuati on nasal spray,suspe nsion USE 1 SPRAY(S) IN EACH NOSTRIL ONCE DAILY fluticasone propionate 50 mcg/actuati on nasal spray,suspe nsion USE 1 SPRAY(S) IN EACH NOSTRIL ONCE DAILY No fluticason e propionate 50 mcg/actuat ion nasal spray,susp ension USE 1 SPRAY(S) IN EACH NOSTRIL ONCE DAILY [facility] Humalog Mix 75-25 KwikPen U-100 insulin 100 unit/mL subcutaneou s pen INJECT 30 UNITS SUBCUTANEOU SLY TWICE DAILY DIRECTED Humalog Mix 75-25 KwikPen U-100 insulin 100 unit/mL subcutaneou s pen INJECT 30 UNITS SUBCUTANEOU SLY TWICE DAILY DIRECTED No Humalog Mix 75-25 KwikPen U-100 insulin 100 unit/mL subcutaneo us pen INJECT 30 UNITS SUBCUTANEO USLY TWICE DAILY DIRECTED [facility] magnesium 400 mg (as magnesium oxide) tablet Take 1 tablet every day by oral route at bedtime for 90 days. magnesium 400 mg (as magnesium oxide) tablet Take 1 tablet every day by oral route at bedtime for 90 days. No 1 Q1D magnesium 400 mg (as magnesium oxide) tablet Take 1 tablet every day by oral route at bedtime for 90 days. [facility] nebivolol 5 mg tablet TAKE 1 TABLET BY MOUTH ONCE DAILY IN THE MORNING nebivolol 5 mg tablet TAKE 1 TABLET BY MOUTH ONCE DAILY IN THE MORNING No nebivolol 5 mg tablet TAKE 1 TABLET BY MOUTH ONCE DAILY IN THE MORNING [facility] rosuvastati n 40 mg tablet TAKE 1 TABLET BY MOUTH ONCE DAILY IN THE EVENING FOR 90 DAYS rosuvastati n 40 mg tablet TAKE 1 TABLET BY MOUTH ONCE DAILY IN THE EVENING FOR 90 DAYS No rosuvastat in 40 mg tablet TAKE 1 TABLET BY MOUTH ONCE DAILY IN THE EVENING FOR 90 DAYS [facility] Trulicity 1.5 mg/0.5 mL subcutaneou s pen injector INJECT 1 SYRINGE SUBCUTANEOU SLY ONCE A WEEK Trulicity 1.5 mg/0.5 mL subcutaneou s pen injector INJECT 1 SYRINGE SUBCUTANEOU SLY ONCE A WEEK No Trulicity 1.5 mg/0.5 mL subcutaneo us pen injector INJECT 1 SYRINGE SUBCUTANEO USLY ONCE A WEEK [facility] escitalopra m 10 mg tablet TAKE 1 TABLET BY MOUTH ONCE DAILY FOR 90 DAYS escitalopra m 10 mg tablet TAKE 1 TABLET BY MOUTH ONCE DAILY FOR 90 DAYS No escitalopr am 10 mg tablet TAKE 1 TABLET BY MOUTH ONCE DAILY FOR 90 DAYS [facility] Farxiga 5 mg tablet Take 1 tablet every day by oral route for 90 days. Farxiga 5 mg tablet Take 1 tablet every day by oral route for 90 days. No 1 Q1D Farxiga 5 mg tablet Take 1 tablet every day by oral route for 90 days. [facility] Humalog Mix 75-25 KwikPen U-100 insulin 100 unit/mL subcutaneou s pen INJECT 30 UNITS SUBCUTANEOU SLY TWICE DAILY DIRECTED Humalog Mix 75-25 KwikPen U-100 insulin 100 unit/mL subcutaneou s pen INJECT 30 UNITS SUBCUTANEOU SLY TWICE DAILY DIRECTED No Humalog Mix 75-25 KwikPen U-100 insulin 100 unit/mL subcutaneo us pen INJECT 30 UNITS SUBCUTANEO USLY TWICE DAILY DIRECTED [facility] lisinopril 10 mg tablet Take 1 tablet by mouth once daily lisinopril 10 mg tablet Take 1 tablet by mouth once daily No lisinopril 10 mg tablet Take 1 tablet by mouth once daily [facility] magnesium 400 mg (as magnesium oxide) tablet Take 1 tablet every day by oral route at bedtime for 90 days. magnesium 400 mg (as magnesium oxide) tablet Take 1 tablet every day by oral route at bedtime for 90 days. No 1 Q1D magnesium 400 mg (as magnesium oxide) tablet Take 1 tablet every day by oral route at bedtime for 90 days. [facility] montelukast 10 mg tablet TAKE 1 TABLET BY MOUTH ONCE DAILY DIRECTED FOR 90 DAYS montelukast 10 mg tablet TAKE 1 TABLET BY MOUTH ONCE DAILY DIRECTED FOR 90 DAYS No montelukas t 10 mg tablet TAKE 1 TABLET BY MOUTH ONCE DAILY DIRECTED FOR 90 DAYS [facility] nebivolol 5 mg tablet TAKE 1 TABLET BY MOUTH ONCE DAILY IN THE MORNING nebivolol 5 mg tablet TAKE 1 TABLET BY MOUTH ONCE DAILY IN THE MORNING No nebivolol 5 mg tablet TAKE 1 TABLET BY MOUTH ONCE DAILY IN THE MORNING [facility] rosuvastati n 40 mg tablet TAKE 1 TABLET BY MOUTH ONCE DAILY IN THE EVENING FOR 90 DAYS rosuvastati n 40 mg tablet TAKE 1 TABLET BY MOUTH ONCE DAILY IN THE EVENING FOR 90 DAYS No rosuvastat in 40 mg tablet TAKE 1 TABLET BY MOUTH ONCE DAILY IN THE EVENING FOR 90 DAYS [facility] Trulicity 1.5 mg/0.5 mL subcutaneou s pen injector INJECT 1 PREFILLED SYRINGE SUBCUTANEOU SLY ONCE A WEEK Trulicity 1.5 mg/0.5 mL subcutaneou s pen injector INJECT 1 PREFILLED SYRINGE SUBCUTANEOU SLY ONCE A WEEK No Trulicity 1.5 mg/0.5 mL subcutaneo us pen injector INJECT 1 PREFILLED SYRINGE SUBCUTANEO USLY ONCE A WEEK [facility] Bystolic Bystolic Yes Melchor Rollins not defined [facility] Trulicity Trulicity Yes Melchor Rollins not defined [facility] Lisinopril Lisinopril Yes Melchor Rollins not defined [facility] Metformin HCl Metformin HCl Yes Melchor Rollins not defined [facility] Rosuvastati n Calcium Rosuvastati n Calcium Yes Melchor Rollins not defined [facility] Paroxetine HCl Paroxetine HCl Yes Melchor Rollins not defined [facility] Humalog Mix 75/25 KwikPen Humalog Mix 75/25 KwikPen Yes Melchor Rollins not defined [facility] Montelukast Sodium Montelukast Sodium Yes Melchor Rollins not defined [facility] Pregabalin Pregabalin Yes Melchor Rollins not defined [facility] metFORMIN HCl metFORMIN HCl No metFORMIN HCl HumaLOG Mix 75/25 KwikPen HumaLOG Mix 75/25 KwikPen No HumaLOG Mix 75/25 KwikPen Rosuvastati n Calcium Rosuvastati n Calcium No Rosuvastat in Calcium Trulicity Trulicity No Trulicity Pregabalin Pregabalin No Pregabalin PARoxetine HCl PARoxetine HCl No PARoxetine HCl Paxil Paxil No Paxil Diovan Diovan No Diovan Montelukast Sodium Montelukast Sodium No Montelukas t Sodium Vital Signs Vital Name Observation Time Observation Value Comments S ource BP Diastolic 2023-03-13 00:00:00 86 mm[Hg] [facility] Height 2023-03-13 00:00:00 69 [in_i] [facility] BMI (Body Mass Index) 2023-03-13 00:00:00 33.9 kg/m2 [facility] BP Systolic 2023-03-13 00:00:00 137 mm[Hg] [facility] Body Weight 2023-03-13 00:00:00 229.6 [lb_av] [facility] BP Diastolic 2023-03-12 00:00:00 77 mm[Hg] [facility] Height 2023-03-12 00:00:00 69 [in_i] [facility] BMI (Body Mass Index) 2023-03-12 00:00:00 33.8 kg/m2 [facility] BP Systolic 2023-03-12 00:00:00 144 mm[Hg] [facility] Body Weight 2023-03-12 00:00:00 3667.2 [oz_av] [facility] BP Diastolic 2023-02-15 00:00:00 76 mm[Hg] [facility] Height 2023-02-15 00:00:00 69 [in_i] [facility] BMI (Body Mass Index) 2023-02-15 00:00:00 33.2 kg/m2 [facility] BP Systolic 2023-02-15 00:00:00 132 mm[Hg] [facility] Body Weight 2023-02-15 00:00:00 3600 [oz_av] [facility] BP Diastolic 2022-09-19 00:00:00 65 mm[Hg] [facility] Height 2022-09-19 00:00:00 69 [in_i] [facility] BMI (Body Mass Index) 2022-09-19 00:00:00 32.6 kg/m2 [facility] BP Systolic 2022-09-19 00:00:00 126 mm[Hg] [facility] Body Weight 2022-09-19 00:00:00 3536 [oz_av] [facility] BP Diastolic 2022-09-11 00:00:00 87 mm[Hg] [facility] Height 2022-09-11 00:00:00 69 [in_i] [facility] BMI (Body Mass Index) 2022-09-11 00:00:00 33.2 kg/m2 [facility] BP Systolic 2022-09-11 00:00:00 159 mm[Hg] [facility] Body Weight 2022-09-11 00:00:00 3593.6 [oz_av] [facility] BP Diastolic 2022-02-23 00:00:00 80 mm[Hg] [facility] Height 2022-02-23 00:00:00 69 [in_i] [facility] BP Systolic 2022-02-23 00:00:00 158 mm[Hg] [facility] BP Diastolic 2021-08-15 00:00:00 75 mm[Hg] [facility] Height 2021-08-15 00:00:00 69 [in_i] [facility] BMI (Body Mass Index) 2021-08-15 00:00:00 31.8 kg/m2 [facility] BP Systolic 2021-08-15 00:00:00 124 mm[Hg] [facility] Body Weight 2021-08-15 00:00:00 3446.4 [oz_av] [facility] BP Diastolic 2021-05-24 00:00:00 86 mm[Hg] [facility] Height 2021-05-24 00:00:00 69 [in_i] [facility] BMI (Body Mass Index) 2021-05-24 00:00:00 33.1 kg/m2 [facility] BP Systolic 2021-05-24 00:00:00 144 mm[Hg] [facility] Body Weight 2021-05-24 00:00:00 3584 [oz_av] [facility] height 2021-05-24 14:30:00 69 [in_i] [facility] weight 2021-05-24 14:30:00 220 [lb_av] [facility] bmi 2021-05-24 14:30:00 32.48 kg/m2 [facility] blood pressure systolic 2021-05-24 14:30:00 141 mm[Hg] [facility] blood pressure diastolic 2021-05-24 14:30:00 82 mm[Hg] [facility] BP Diastolic 2021-05-12 00:00:00 81 mm[Hg] [facility] Height 2021-05-12 00:00:00 69 [in_i] [facility] BMI (Body Mass Index) 2021-05-12 00:00:00 33.3 kg/m2 [facility] BP Systolic 2021-05-12 00:00:00 156 mm[Hg] [facility] Body Weight 2021-05-12 00:00:00 3603.2 [oz_av] [facility] Procedures Procedure Date / Time Performed Performing Clinician Source CT, head, w/o contrast 2022-09-11 00:00:00 [facility] XR, hip + pelvis, unilateral, 2 or 3 view 2022-09-11 00:00:00 [facility] XR, lumbosacral spine, 2 or 3 view 2021-05-24 00:00:00 [facility] XR, thoracic spine, 3 view 2021-05-24 00:00:00 [facility] XR, hip + pelvis, unilateral, 2 or 3 view 2021-05-24 00:00:00 [facility] bone density 2021-05-12 00:00:00 [facility] Laparoscopic Adjustable Gastric Banding [facility] Cardiac Catheter[facility] Procedure on Kidney [facility] Plan of Care Planned Activity Planned Date Details Comments Source Diagnostic Test Pending 2023-03-12 00:00:00 PSA, serum or plasma [code = PSA, serum or plasma] [facility] Diagnostic Test Pending 2023-03-12 00:00:00 vitamin D, 25-hydroxy, total, serum [code = vitamin D, 25-hydroxy, total, serum] [facility] Diagnostic Test Pending 2023-03-12 00:00:00 testosterone, total, serum [code = testosterone, total, serum] [facility] Instructions [facility] Encounters Start Date/Time End Date/Time Encounter Type Admission Type Attending [facility] Care Facility Care Department Encounter ID Source 2021-12-21 13:27:47 Outpatient [facility] [id number] [facility] 2021-12-21 13:20:34 Outpatient [facility] [id number] [facility] 2021-12-21 13:12:40 Outpatient fouziaHernangennarodain Mitchell [facility] [id number] [facility] 2021-12-21 12:20:02 Outpatient Mitchell Bolanos [facility] [id number] [facility] 2021-12-21 11:34:25 Outpatient Orona Mitchell [facility] [id number] [facility] 2021-08-26 10:30:00 Inpatient LAMAR RAMOS [facility] [id number] [facility] 2023-03-26 00:00:00 2023-03-26 00:00:00 Outpatient CHRETIEN_F [facility] [id number] [facility] 2023-03-26 00:00:00 2023-03-26 00:00:00 Outpatient CHRETIEN_F [facility] [id number] [place] [facility] 2023-03-13 00:00:00 2023-03-13 00:00:00 Outpatient Gagandeep NEELY [place] [id number] [facility] 2023-03-13 00:00:00 2023-03-13 00:00:00 Cornell Galo MD: [address] [place] [address], [address], [place] [address] , Ph. [facility] [id number] [facility] 2023-03-12 00:00:00 2023-03-12 00:00:00 Outpatient CHRETIEN_F [facility] [id number] [facility] 2023-03-12 00:00:00 2023-03-12 00:00:00 Carlee Elder APRN-COMMERCIAL TRAILER TRUCK DRIVER-B C: [address] [facility], [address], [place] [address] , Ph. [facility] [id number] [facility] [place] [facility] 2023-03-09 00:00:00 2023-03-09 00:00:00 Outpatient Yan_W MMG [id number] [id number] [facility] 2023-03-09 00:00:00 2023-03-09 00:00:00 Outpatient Yan_W MMG [id number] [id number] [facility] 2023-03-08 00:00:00 2023-03-08 00:00:00 Outpatient Yan_W MMG MMG [id number] [facility] 2023-02-15 00:00:00 2023-02-15 00:00:00 Carlee Elder APRN-COMMERCIAL TRAILER TRUCK DRIVER-B C: [address], [address], [place] [address] , Ph. [facility] [id number] [facility] [place] [facility] 2023-02-01 00:00:00 2023-02-01 00:00:00 Outpatient Yan_W MMG MMG [id number] [facility] 2022-10-23 00:00:00 2022-10-23 00:00:00 Outpatient CHRETIEN_F [facility] [id number] [place] [facility] 2022-10-23 00:00:00 2022-10-23 00:00:00 Outpatient CHRETIEN_F [facility] [id number] [place] [facility] 2022-10-11 00:00:00 2022-10-11 00:00:00 Outpatient CHRETIEN_F [facility] [id number] [place] [facility] 2022-09-19 00:00:00 2022-09-19 00:00:00 Outpatient CHRETIEN_F [facility] [id number] [place] [facility] 2022-09-19 00:00:00 2022-09-19 00:00:00 Carlee Elder APRN-COMMERCIAL TRAILER TRUCK DRIVER-B C: [address] [facility], [address] [place] [address] , Ph. [facility] [id number] [place] [facility] 2022-09-13 00:00:00 2022-09-13 00:00:00 Outpatient CHRETIEN_F [facility] [id number] [place] [facility] 2022-09-11 00:00:00 2022-09-11 00:00:00 Outpatient CHRETIEN_F [facility] [id number] [place] [facility] 2022-09-11 00:00:00 2022-09-11 00:00:00 Carleeailyn Elder APRN-COMMERCIAL TRAILER TRUCK DRIVER-B C: [address] [facility], [address] [place] [address] , Ph. [facility] [id number] [place] [facility] 2022-06-28 00:00:00 2022-06-28 00:00:00 Outpatient WATERS_S [facility] [id number] [place] [facility] 2022-06-21 00:00:00 2022-06-21 00:00:00 Outpatient WATERS_S [facility] [id number] [place] [facility] 2022-02-23 10:15:00 2022-02-23 10:15:00 Outpatient WATERS_S [facility] [id number] [place] [facility] 2022-02-23 00:00:00 2022-02-23 00:00:00 Libra Blanchard APRN-MECHANICAL APPLICATIONS ENGINEER-C: [address], [address], [place] [address] , Ph. [facility] [id number] [place] [facility] 2022-02-23 00:00:00 2022-02-23 00:00:00 Outpatient Libra Blanchard [facility] [id number] 2022-02-21 02:03:00 2022-02-21 02:03:00 Outpatient WATERS_S [facility] [id number] [place] [facility] 2021-09-13 01:20:00 2021-09-13 01:20:00 Outpatient SCHAUBROECK _L [facility] [id number] [place] [facility] 2021-08-16 10:30:00 2021-08-25 00:00:00 Inpatient EL KNOW, DOES_NOT HCANC INF [id number] [facility] 2021-08-15 05:33:00 2021-08-15 05:33:00 Outpatient SCHAUBROECK _L [facility] [id number] [place] [facility] 2021-08-15 00:00:00 2021-08-15 00:00:00 Outpatient Lamar Cabrera [facility] [id number] 2021-08-15 00:00:00 2021-08-15 00:00:00 KURTIS Lopez-C: [address] [place] [address], [address] [place] [address] , Ph. [facility] [id number] [place] [facility] 2021-08-09 01:20:00 2021-08-09 01:20:00 Outpatient SCHAUBROECK _L [facility] [id number] [place] [facility] 2021-07-05 12:57:00 2021-07-05 12:57:00 Outpatient SCHAUBROECK _L [facility] [id number] [place] [facility] 2021-05-31 12:34:00 2021-05-31 12:34:00 Outpatient SCHAUBROECK _L [facility] [id number] [place] [facility] 2021-05-24 10:41:00 2021-05-24 10:41:00 Outpatient SCHAUBROECK _L [facility] [id number] [place] [facility] 2021-05-24 00:00:00 2021-05-24 00:00:00 KURTIS Lopez-C: [address] [place] [address], [address], [place] [address] , Ph. [facility] [id number] [place] [facility] 2021-05-24 00:00:00 2021-05-24 00:00:00 Outpatient Alize Lamar Linares [facility] [id number] 2021-05-24 00:00:00 2021-05-24 00:00:00 Outpatient Alize Lamar Linares [facility] [id number] 2021-05-24 00:00:00 2021-05-24 00:00:00 OFFICE VISIT EST PT LEVEL 3 [facility] [id number] [facility] 2021-05-12 04:23:00 2021-05-12 04:23:00 Outpatient SCHAUBROECK _L [facility] [id number] [facility] [place] [facility] 2021-05-12 00:00:00 2021-05-12 00:00:00 [facility] [address] [place] [address], [address], [place] [address] , Ph. [facility] [id number] [facility] [place] [facility] 2021-05-12 00:00:00 2021-05-12 00:00:00 Outpatient Lamar Cabrera [facility] [id number] 2021-05-12 00:00:00 2021-05-12 00:00:00 Outpatient Lamar Cabrera [facility] [id number] 2020-08-02 03:22:00 2020-08-02 03:22:00 Outpatient YOSSIROECK _L [facility] [id number] [facility] [place] [facility] 2020-06-28 13:00:00 2020-06-28 13:00:00 Outpatient [facility] [id number] [facility] Results Test Description Test Time Test Comments Results Result Co mments Source [facility], [id number] 10:49:00* Test Item Value Reference Range Interpretation Comme nts Negative (test code = Negative) negative [facility], [id number] 10:49:00* Test Item Value Reference Range Interpretation Comme nts Negative (test code = Negative) negative [facility] identified in Urine by Culture 2021-05-16 00:00:00* Test Item Value Reference Range Interpretation Comme nts Bacteria identified in Urine by Culture (test code = 630-4) comment A [facility] Urine by Culture 2021-05-16 00:00:00* Test Item Value Reference Range Interpretation Comme nts Bacteria identified in Urine by Culture (test code = 630-4) comment A [facility] ([facility])2021-05-13 17:26:00* Test Item Value Reference Range Interpretation Comme nts Occult Blood (test code = Oc cult Blood) negative [facility] exam (PROC)2021-05-13 17:26:00* Test Item Value Reference Range Interpretation Comme nts Occult Blood (test code = Oc cult Blood) negative [facility] exam (PROC)2021-05-13 17:26:00* Test Item Value Reference Range Interpretation Comme nts Occult Blood (test code = Oc cult Blood) negative [facility] Paso[facility] W Auto Differential panel - [id number] 00:00:00* Test Item Value Reference Range Interpretation Comme nts Leukocytes [#/volume] in Blo od by Automated count (test code = 6690-2) 5.0 x10e3/uL 3.4-10.8 Erythrocytes [#/volume] in Blood by Automated count (test code = 789-8) 5.02 x10e6/uL 4.14-5.80 Hemoglobin [Mass/volume] in Blood (test code = 718-7) 15.0 g/dL 13.0-17.7 Hematocrit [Volume Fraction] of Blood by Automated count (test code = 4544-3) 42.2 % 37.5-51.0 Erythrocyte mean corpuscular volume [Entitic volume] by Automated count (test code = 787-2) 84 fL 79-97 Erythrocyte mean corpuscular hemoglobin [Entitic mass] by Automated count (test code = 785-6) 29.9 pg 26.6-33.0 Erythrocyte mean corpuscular hemoglobin concentration [Mass/volume] by Automated count (test code = 786-4) 35.5 g/dL 31.5-35.7 Erythrocyte distribution wid th [Ratio] by Automated count (test code = 788-0) 12.2 % 11.6-15.4 Platelets [#/volume] in Bloo d by Automated count (test code = 777-3) 310 x10e3/uL 150-450 Neutrophils/100 leukocytes i n Blood by Automated count (test code = 770-8) 59 % not estab. Lymphocytes/100 leukocytes i n Blood by Automated count (test code = 736-9) 31 % not estab. Monocytes/100 leukocytes in Blood by Automated count (test code = 5905-5) 6 % not estab. Eosinophils/100 leukocytes i n Blood by Automated count (test code = 713-8) 3 % not estab. Basophils/100 leukocytes in Blood by Automated count (test code = 706-2) 1 % not estab. immature cells (test code = immature cells) tacker off Neutrophils [#/volume] in Bl ood by Automated count (test code = 751-8) 2.9 x10e3/uL 1.4-7.0 Lymphocytes [#/volume] in Bl ood by Automated count (test code = 731-0) 1.6 x10e3/uL 0.7-3.1 Monocytes [#/volume] in Bloo d by Automated count (test code = 742-7) 0.3 x10e3/uL 0.1-0.9 Eosinophils [#/volume] in Bl ood by Automated count (test code = 711-2) 0.1 x10e3/uL 0.0-0.4 Basophils [#/volume] in Bloo d by Automated count (test code = 704-7) 0.1 x10e3/uL 0.0-0.2 Immature granulocytes/100 leukocytes in Blood by Automated count (test code = 34535-9) 0 % not estab. Immature granulocytes [#/volume] in Blood by Automated count (test code = 62933-4) 0.0 x10e3/uL 0.0-0.1 Nucleated erythrocytes/100 leukocytes [Ratio] in Blood by Automated count (test code = 99865-0) tacker off Morphology [Interpretation] in Blood Narrative (test code = 77444-6) tacker off [facility] 2000 panel - Serum or [id number] 00:00:00* Test Item Value Reference Range Interpretation Comme nts Glucose [Mass/volume] in Serum or Plasma (test code = 2345-7) 188 mg/dL 65-99 H Urea nitrogen [Mass/volume] in Serum or Plasma (test code = 3094-0) 15 mg/dL 8-27 Creatinine [Mass/volume] in Serum or Plasma (test code = 2160-0) 0.93 mg/dL 0.76-1.27 Glomerular filtration rate/1.73 sq M.predicted among non-blacks [Volume Rate/Area] in Serum, Plasma or Blood by Creatinine-based formula (CKD-EPI) (test code = 69318-9) 89 mL/min/1.73 >59 Glomerular filtration rate/1.73 sq M.predicted among blacks [Volume Rate/Area] in Serum, Plasma or Blood by Creatinine-based formula (CKD-EPI) (test code = 85952-4) 103 mL/min/1.73 >59 Urea nitrogen/Creatinine [Mass Ratio] in Serum or Plasma (test code = 3097-3) 16 10-24 Sodium [Moles/volume] in Serum or Plasma (test code = 2951-2) 140 mmol/L 134-144 Potassium [Moles/volume] in Serum or Plasma (test code = 2823-3) 4.4 mmol/L 3.5-5.2 Chloride [Moles/volume] in Serum or Plasma (test code = 2075-0) 102 mmol/L 96-106 Carbon dioxide, total [Moles/volume] in Serum or Plasma (test code = 2027-9) 26 mmol/L 20-29 Calcium [Mass/volume] in Serum or Plasma (test code = 05105-3) 9.5 mg/dL 8.6-10.2 Protein [Mass/volume] in Serum or Plasma (test code = 2885-2) 6.8 g/dL 6.0-8.5 Albumin [Mass/volume] in Serum or Plasma (test code = 1751-7) 4.2 g/dL 3.8-4.9 Globulin [Mass/volume] in Serum by calculation (test code = 91769-6) 2.6 g/dL 1.5-4.5 Albumin/Globulin [Mass Ratio ] in Serum or Plasma (test code = 1759-0) 1.6 1.2-2.2 Bilirubin.total [Mass/volume ] in Serum or Plasma (test code = 1975-2) 0.7 mg/dL 0.0-1.2 Alkaline phosphatase [Enzymatic activity/volume] in Serum or Plasma (test code = 6768-6) 99 IU/L 48-121 Aspartate aminotransferase [Enzymatic activity/volume] in Serum or Plasma (test code = 1920-8) 9 IU/L 0-40 Alanine aminotransferase [Enzymatic activity/volume] in Serum or Plasma (test code = 1742-6) 9 IU/L 0-44 [facility] - Serum or [id number] 00:00:00* Test Item Value Reference Range Interpretation Comme nts Cholesterol [Mass/volume] in Serum or Plasma (test code = 2093-3) 202 mg/dL 100-199 H Triglyceride [Mass/volume] i n Serum or Plasma (test code = 2571-8) 150 mg/dL 0-149 H Cholesterol in HDL [Mass/vol ume] in Serum or Plasma (test code = 2085-9) 49 mg/dL >39 Cholesterol in VLDL [Mass/vo lume] in Serum or Plasma by calculation (test code = 54720-0) 27 mg/dL 5-40 Cholesterol in LDL [Mass/vol ume] in Serum or Plasma by calculation (test code = 28212-4) 126 mg/dL 0-99 H Laboratory comment [Text] in Report Narrative (test code = 82582-3) tacker off Cholesterol in LDL/Cholester ol in HDL [Mass Ratio] in Serum or Plasma (test code = 69438-3) 2.6 ratio 0.0-3.6 [facility] 1995 panel - [id number] 00:00:00 * Test Item Value Reference Range Interpretation Comme nts Hepatitis A virus IgM Ab [Pr esence] in Serum or Plasma by Immunoassay (test code = 87653-6) negative negative Hepatitis B virus surface Ag [Presence] in Serum or Plasma by Immunoassay (test code = 5196-1) negative negative Hepatitis B virus core IgM A b [Presence] in Serum or Plasma by Immunoassay (test code = 16963-2) negative negative Hepatitis C virus Ab Signal/ Cutoff in Serum or Plasma by Immunoassay (test code = 77555-6) <0.1 0.0-0.9 [facility]/Hemoglobin.total in Blood 2021-05-13 00:00:00* Test Item Value Reference Range Interpretation Comme nts Hemoglobin A1c/Hemoglobin.to norah in Blood (test code = 4548-4) 10.2 % 4.8-5.6 H [facility] PasoProstate specific Ag [Mass/volume] in Serum or [id number] 00:00:00* Test Item Value Reference Range Interpretation Comme nts Prostate specific Ag [Mass/v olume] in Serum or Plasma (test code = 2857-1) 0.3 NG/mL 0.0-4.0 [facility]yrotropin [Units/volume] in Serum or Plasma by Detection limit <= 0.005 mIU/[id number] 00:00:00* Test Item Value Reference Range Interpretation Comme nts Thyrotropin [Units/volume] i n Serum or Plasma by Detection limit <= 0.005 mIU/L (test code = 16780-0) 1.760 uIU/mL 0.450-4.500 [facility]25-Hydroxyvitamin D3+25-Hydroxyvitamin D2 [Mass/volume] in Serum or [id number] 00:00:00* Test Item Value Reference Range Interpretation Comme nts 25-Hydroxyvitamin D3+25-Hydroxyvitamin D2 [Mass/volume] in Serum or Plasma (test code = 48247-7) 30.7 NG/mL 30.0-100.0 [facility]yroxine (T4) free [Mass/volume] in Serum or [id number] 00:00:00* Test Item Value Reference Range Interpretation Comme nts Thyroxine (T4) free [Mass/vo lume] in Serum or Plasma (test code = 3024-7) 1.11 NG/dL 0.82-1.77 [facility]uclear Ab [Presence] in [id number] 00:00:00* Test Item Value Reference Range Interpretation Comme nts Nuclear Ab [Presence] in Ser um (test code = 8061-4) negative negative [facility] PasoErythrocyte sedimentation rate by Westergren [id number] 00:00:00* Test Item Value Reference Range Interpretation Comme nts Erythrocyte sedimentation ra te by Westergren method (test code = 4537-7) 4 mm/HR 0-30 [facility] reactive protein [Mass/volume] in Serum or [id number] 00:00:00* Test Item Value Reference Range Interpretation Comme nts C reactive protein [Mass/vol ume] in Serum or Plasma (test code = 1987-) <1 0-[address] [facility] W Auto Differential panel - [id number] 00:00:00* Test Item Value Reference Range Interpretation Comme nts Leukocytes [#/volume] in Blo od by Automated count (test code = 6690-2) 5.0 x10e3/uL 3.4-10.8 Erythrocytes [#/volume] in Blood by Automated count (test code = 789-8) 5.02 x10e6/uL 4.14-5.80 Hemoglobin [Mass/volume] in Blood (test code = 718-7) 15.0 g/dL 13.0-17.7 Hematocrit [Volume Fraction] of Blood by Automated count (test code = 4544-3) 42.2 % 37.5-51.0 Erythrocyte mean corpuscular volume [Entitic volume] by Automated count (test code = 787-2) 84 fL 79-97 Erythrocyte mean corpuscular hemoglobin [Entitic mass] by Automated count (test code = 785-6) 29.9 pg 26.6-33.0 Erythrocyte mean corpuscular hemoglobin concentration [Mass/volume] by Automated count (test code = 786-4) 35.5 g/dL 31.5-35.7 Erythrocyte distribution wid th [Ratio] by Automated count (test code = 788-0) 12.2 % 11.6-15.4 Platelets [#/volume] in Bloo d by Automated count (test code = 777-3) 310 x10e3/uL 150-450 Neutrophils/100 leukocytes i n Blood by Automated count (test code = 770-8) 59 % not estab. Lymphocytes/100 leukocytes i n Blood by Automated count (test code = 736-9) 31 % not estab. Monocytes/100 leukocytes in Blood by Automated count (test code = 5905-5) 6 % not estab. Eosinophils/100 leukocytes i n Blood by Automated count (test code = 713-8) 3 % not estab. Basophils/100 leukocytes in Blood by Automated count (test code = 706-2) 1 % not estab. immature cells (test code = immature cells) tacker off Neutrophils [#/volume] in Bl ood by Automated count (test code = 751-8) 2.9 x10e3/uL 1.4-7.0 Lymphocytes [#/volume] in Bl ood by Automated count (test code = 731-0) 1.6 x10e3/uL 0.7-3.1 Monocytes [#/volume] in Bloo d by Automated count (test code = 742-7) 0.3 x10e3/uL 0.1-0.9 Eosinophils [#/volume] in Bl ood by Automated count (test code = 711-2) 0.1 x10e3/uL 0.0-0.4 Basophils [#/volume] in Bloo d by Automated count (test code = 704-7) 0.1 x10e3/uL 0.0-0.2 Immature granulocytes/100 leukocytes in Blood by Automated count (test code = 72161-0) 0 % not estab. Immature granulocytes [#/volume] in Blood by Automated count (test code = 61697-9) 0.0 x10e3/uL 0.0-0.1 Nucleated erythrocytes/100 leukocytes [Ratio] in Blood by Automated count (test code = 36064-4) tacker off Morphology [Interpretation] in Blood Narrative (test code = 56320-2) [facility] off [facility] - Serum or [id number] 00:00:00* Test Item Value Reference Range Interpretation Comme nts Glucose [Mass/volume] in Serum or Plasma (test code = 2345-7) 188 mg/dL 65-99 H Urea nitrogen [Mass/volume] in Serum or Plasma (test code = 3094-0) 15 mg/dL 8-27 Creatinine [Mass/volume] in Serum or Plasma (test code = 2160-0) 0.93 mg/dL 0.76-1.27 Glomerular filtration rate/1.73 sq M.predicted among non-blacks [Volume Rate/Area] in Serum, Plasma or Blood by Creatinine-based formula (CKD-EPI) (test code = 73977-0) 89 mL/min/1.73 >59 Glomerular filtration rate/1.73 sq M.predicted among blacks [Volume Rate/Area] in Serum, Plasma or Blood by Creatinine-based formula (CKD-EPI) (test code = 39369-6) 103 mL/min/1.73 >59 Urea nitrogen/Creatinine [Mass Ratio] in Serum or Plasma (test code = 3097-3) 16 10-24 Sodium [Moles/volume] in Serum or Plasma (test code = 2951-2) 140 mmol/L 134-144 Potassium [Moles/volume] in Serum or Plasma (test code = 2823-3) 4.4 mmol/L 3.5-5.2 Chloride [Moles/volume] in Serum or Plasma (test code = 2075-0) 102 mmol/L 96-106 Carbon dioxide, total [Moles/volume] in Serum or Plasma (test code = 2027-) 26 mmol/L 20-29 Calcium [Mass/volume] in Serum or Plasma (test code = 40694-5) 9.5 mg/dL 8.6-10.2 Protein [Mass/volume] in Serum or Plasma (test code = 2885-2) 6.8 g/dL 6.0-8.5 Albumin [Mass/volume] in Serum or Plasma (test code = 1751-7) 4.2 g/dL 3.8-4.9 Globulin [Mass/volume] in Serum by calculation (test code = 34452-2) 2.6 g/dL 1.5-4.5 Albumin/Globulin [Mass Ratio ] in Serum or Plasma (test code = 1759-0) 1.6 1.2-2.2 Bilirubin.total [Mass/volume ] in Serum or Plasma (test code = 1974-) 0.7 mg/dL 0.0-1.2 Alkaline phosphatase [Enzymatic activity/volume] in Serum or Plasma (test code = 6768-6) 99 IU/L 48-121 Aspartate aminotransferase [Enzymatic activity/volume] in Serum or Plasma (test code = 1920-8) 9 IU/L 0-40 Alanine aminotransferase [Enzymatic activity/volume] in Serum or Plasma (test code = 174-6) 9 IU/L 0-44 [facility] - [facility] or [id number] 00:00:00* Test Item Value Reference Range Interpretation Comme nts Cholesterol [Mass/volume] in Serum or Plasma (test code = 2093-3) 202 mg/dL 100-199 H Triglyceride [Mass/volume] i n Serum or Plasma (test code = 2571-8) 150 mg/dL 0-149 H Cholesterol in HDL [Mass/vol ume] in Serum or Plasma (test code = 2085-9) 49 mg/dL >39 Cholesterol in VLDL [Mass/vo lume] in Serum or Plasma by calculation (test code = 34832-8) 27 mg/dL 5-40 Cholesterol in LDL [Mass/vol ume] in Serum or Plasma by calculation (test code = 34704-9) 126 mg/dL 0-99 H Laboratory comment [Text] in Report Narrative (test code = 17279-8) tacker off Cholesterol in LDL/Cholester ol in HDL [Mass Ratio] in Serum or Plasma (test code = 39037-9) 2.6 ratio 0.0-3.6 [facility] 1995 panel - [id number] 00:00:00 * Test Item Value Reference Range Interpretation Comme nts Hepatitis A virus IgM Ab [Pr esence] in Serum or Plasma by Immunoassay (test code = 17170-9) negative negative Hepatitis B virus surface Ag [Presence] in Serum or Plasma by Immunoassay (test code = 5196-1) negative negative Hepatitis B virus core IgM A b [Presence] in Serum or Plasma by Immunoassay (test code = 42619-5) negative negative Hepatitis C virus Ab Signal/ Cutoff in Serum or Plasma by Immunoassay (test code = 63848-9) <0.1 0.0-0.9 [facility]Hemoglobin.total in Blood 2021-05-13 00:00:00* Test Item Value Reference Range Interpretation Comme nts Hemoglobin A1c/Hemoglobin.to norah in Blood (test code = 4548-4) 10.2 % 4.8-5.6 H [facility]state specific Ag [Mass/volume] in Serum or [id number] 00:00:00* Test Item Value Reference Range Interpretation Comme nts Prostate specific Ag [Mass/v olume] in Serum or Plasma (test code = 2857-1) 0.3 NG/mL 0.0-4.0 [facility] [Units/volume] in Serum or Plasma by Detection limit <= 0.005 mIU/[id number] 00:00:00* Test Item Value Reference Range Interpretation Comme nts Thyrotropin [Units/volume] i n Serum or Plasma by Detection limit <= 0.005 mIU/L (test code = 61909-7) 1.760 uIU/mL 0.450-4.500 [facility]25-Hydroxyvitamin D3+25-Hydroxyvitamin D2 [Mass/volume] in Serum or [id number] 00:00:00* Test Item Value Reference Range Interpretation Comme nts 25-Hydroxyvitamin D3+25-Hydroxyvitamin D2 [Mass/volume] in Serum or Plasma (test code = 47898-5) 30.7 NG/mL 30.0-100.0 [facility]yroxine (T4) free [Mass/volume] in Serum or [id number] 00:00:00* Test Item Value Reference Range Interpretation Comme nts Thyroxine (T4) free [Mass/vo lume] in Serum or Plasma (test code = 3024-7) 1.11 NG/dL 0.82-1.77 [facility]Nuclear Ab [Presence] in [id number] 00:00:00* Test Item Value Reference Range Interpretation Comme nts Nuclear Ab [Presence] in Ser um (test code = 8061-4) negative negative [facility] PasoErythrocyte sedimentation rate by Westergren [id number] 00:00:00* Test Item Value Reference Range Interpretation Comme nts Erythrocyte sedimentation ra te by Westergren method (test code = 4537-7) 4 mm/HR 0-30 [facility] reactive protein [Mass/volume] in Serum or [id number] 00:00:00* Test Item Value Reference Range Interpretation Comme nts C reactive protein [Mass/vol ume] in Serum or Plasma (test code = 1988-5) <1 0-10 [facility]
[2024-01-26] MEDS ORDERED: NA CHLORIDE 0.9% 1,000 ML ONE (11:27)
[2024-01-26] MEDS ORDERED: ASPIRIN 81 MG CHEWABLE TABLET ONE (11:27)
[2024-01-26] MEDS ORDERED: NITROGLYCERIN 0.4 MG/TAB SL ONE (11:27)
[2024-01-26 11:31] LABS: Absolute Basophils 0.1 K/uL (0-0.5); Absolute Eosinophils 0.2 K/uL (0-0.5); Absolute Lymphocytes (CBC) 1.9 K/uL (0.7-4.9); Basophils % 0.7 % (0-1.3); Eosinophils % 1.6 % (0-4.4); Hematocrit 48.6 % (39.6-49.0); Hemoglobin 16.9 g/dL (13.6-17.9); Lymphocytes % 19.2 % (15.3-44.8); MCV 85.4 fL (80-100); MPV 8.2 fL (7.6-11.3); Platelets 290 thou/uL (152-406); RBC Red Blood Cell Count 5.69 M/uL (4.33-5.43)
[2024-01-26 12:06] LABS: Albumin 3.7 g/dL (3.4-5.0); Albumin/Globulin Ratio 0.9 (1.1-1.8); Anion Gap 11.9 mEq/L (5.0-15.0); Bilirubin Direct 0.2 mg/dL (0-0.2); Bilirubin Indirect, Calculated 0.6 mg/dL (0.2-0.8); Bilirubin Total 0.8 mg/dL (0.2-1.0); Globulin 3.9 g/dL (2.3-3.5); Magnesium 2.1 mg/dL (1.6-2.4); Potassium 3.9 mEq/L (3.5-5.1); Protein, Total 7.6 g/dL (6.4-8.2); Troponin High Sensitivity 4.1 pg/mL (<58.9)
--- NOTE | 2024-01-26 13:06 | RAD REPORT ---
EXAM DESCRIPTION: CTAngio Aorta For Dissection - 01/26/2024 12:57 pm CLINICAL HISTORY: back/chest pain COMPARISON: No comparisons TECHNIQUE: CTA of the chest, abdomen, and pelvis was performed with IV contrast. MIPS of the aorta w ere created. All CT scans are performed using dose optimization technique as appropriate and may include automated exposure control or mA/KV adjustment according to patient size. FINDINGS: Thorax: Chest Wall: No abnormal mass Lungs: A few scattered tiny calcified pulmonary nodules are noted. These are benign. No acute process in the chest. Pleura: No effusions or pneumothorax. Eulalia/Mediastinum: Moderate to severe circumferential thickening of the esophagus. This is more pronou nced distally. Aorta/Pulmonary Arteries: Unremarkable Heart: Normal size. Mild coronary artery calcifications. Abdomen/Pelvis: Liver: No acute abnormality or suspicious lesions. Biliary: No biliary ductal dilatation. Stomach: Status post gastric banding. There is significant thickening of the proximal stomach. Duodenum: No significant focal abnormality. Pancreas: No significant abnormality. Spleen: No significant abnormality. Adrenal: No suspicious lesions. Kidney/ureter: No hydronephrosis. No renal calculi. Too small to characterize and/or benign appearing renal lesions are noted. Retroperitoneum: No retroperitoneal adenopathy. Vascular: No aneurysm. Bowel: No significant focal abnormality. Peritoneum: No ascites or free air. Small fat containing inguinal hernias. Bladder: Grossly unremarkable. Reproductive: No adnexal masses. Bones: No acute fracture. Multilevel degenerative changes are present in the spine. Other: n/a IMPRESSION: No aortic aneurysm, aortic dissection, or pulmonary embolus identified. Moderate to justin re esophageal wall and proximal gastric wall thickening concerning for gastritis/esophagitis. Note th at the thickening is proximal to the gastric band which may be overly tightened. Endoscopy could bett er evaluate.
--- NOTE | 2024-01-26 14:18 | EDPHYS ---
Physician Documentation [facility] Name: Gigi Woods Age: 63 yrs Sex: Male : 1960 Arrival Date: 01/26/2024 Time: 10:52 Bed 18 Private MD: ED Physician Miek Massey HPI: 01/25 11:20 This 63 yrs old Male presents to ER via Ambulatory with complaints of Chest Pain, rt Nausea, Shoulder Pain, Back Pain, Shortness Of Breath. 11:20 Patient presents to the ED with about 1 week of intermittent chest pain. He says that rt it starts at his back, radiates to the chest. Reports shoulder pain as well. He has shortness of breath. States that it is worse with exertion. Patient states that he had noncritical coronary disease and heart cath several years ago, is not had further workup since then. States that has been out of his diabetes medications for about 1 month, reports having higher blood sugars. Denies other acute complaints, symptoms are moderate severity, no other aggravating or alleviating factors.. Historical: - PMHx: 11:12 Diabetes mellitus; ss - Immunization history:: Adult Immunizations up to date. - Social history:: Smoking status: . - Family history:: not pertinent. ROS: 11:20 Constitutional: Negative for fever, chills, and weight loss, Abdomen/GI: Negative for rt abdominal pain, nausea, vomiting, diarrhea, and constipation, MS/Extremity: Negative for injury and deformity, Skin: Negative for injury, rash, and discoloration, Neuro: Negative for headache, weakness, numbness, tingling, and seizure, Psych: Negative for depression, anxiety, suicide ideation, homicidal ideation, and hallucinations, 11:20 Cardiovascular: Positive for chest pain, Negative for orthopnea, 11:20 Respiratory: Positive for shortness of breath, Negative for cough, 11:20 Back: Positive for pain at rest, Negative for injury or acute deformity, Exam: 11:20 Constitutional: This is a well developed, well nourished patient who is awake, alert, rt and in no acute distress. Head/Face: Normocephalic, atraumatic. Chest/axilla: Normal chest wall appearance and motion. Nontender with no deformity. No lesions are appreciated. Cardiovascular: Regular rate and rhythm with a normal S1 and S2. No gallops, murmurs, or rubs. Normal PMI, no JVD. No pulse deficits. Respiratory: Lungs have equal breath sounds bilaterally, clear to auscultation and percussion. No rales, rhonchi or wheezes noted. No increased work of breathing, no retractions or nasal flaring. Abdomen/GI: Soft, non-tender, with normal bowel sounds. No distension or tympany. No guarding or rebound. No evidence of tenderness throughout. Skin: Warm, dry with normal turgor. Normal color with no rashes, no lesions, and no evidence of cellulitis. MS/ Extremity: Pulses equal, no cyanosis. Neurovascular intact. Full, normal range of motion. Neuro: Awake and alert, GCS 15, oriented to person, place, time, and situation. Cranial nerves II-XII grossly intact. Motor strength 5/5 in all extremities. Sensory grossly intact. Cerebellar exam normal. Normal gait. Psych: Awake, alert, with orientation to person, place and time. Behavior, mood, and affect are within normal limits. 11:20 ECG was reviewed by the Attending Physician. Vital Signs: 11:09 Temp 97.8(TE); Weight 99.79 kg; Height 5 ft. 9 in. ; ss 11:11 Pulse 105; Resp 18; Pulse Ox 100% on R/A; mb9 11:24 BP 151 / 95; mb9 13:05 Pulse 88; Resp 18; Pulse Ox 100% on R/A; mb9 13:28 BP 138 / 83; Pulse 79; Resp 18; Pulse Ox 97% on R/A; ld1 14:11 BP 145 / 75; Pulse 84; Resp 18; Pulse Ox 99% on R/A; mb9 15:30 BP 138 / 68; Pulse 88; Resp 18; Pulse Ox 100% on R/A; mb9 17:03 BP 134 / 74; Pulse 84; Resp 18; Pulse Ox 100% on R/A; mb9 11:09 Body Mass Index 32.49 (99.79 kg, 175.26 cm) ss MDM: 11:04 Patient medically screened. rt 13:40 Differential diagnosis: abnormal EKG, acute myocardial infarction, coronary artery rt disease chest wall pain, pneumonia, pneumothorax. HEART Score: History: Highly Suspicious (2), ECG: Non specific repolarization disturbance / LBTB / PM (1), Age: > 45 and < 65 years (1), Risk Factors: > or = 3 Risk factors for atherosclerotic disease (2), Troponin: < or = 1 x Normal Limit (0), Total Score = 6. The patient was given aspirin in the Emergency Department. Data reviewed: vital signs, nurses notes, lab test result(s), EKG, radiologic studies. Consideration of Admission/Observation Patient was admitted/placed on observation. Management of patient was discussed with the following: Hospitalist: Agrees to admit. Independent interpretation of the following test(s) in the Emergency Department CT Scan: My interpretation is No dissection seen on interpretation of CT scan images. Test considered but Not performed: X-ray: CT of the chest was performed, x-rays redundant. Care significantly affected by the following chronic conditions: Diabetes. Counseling: I had a detailed discussion with the patient and/or guardian regarding the historical points, exam findings, and any diagnostic results supporting the discharge/admit diagnosis, lab results, radiology results, the need for further work-up and treatment in the hospital. Response to treatment: the patient's symptoms have markedly improved after treatment. 01/25 11:14 Order name: Basic Metabolic Panel; Complete Time: 12:12 rt 01/25 11:14 Order name: CBC with Diff; Complete Time: 12:12 rt 01/25 11:14 Order name: LFT's; Complete Time: 12:12 rt 01/25 11:14 Order name: Magnesium; Complete Time: 12:12 rt 01/25 11:14 Order name: Troponin HS; Complete Time: 12:12 rt 01/25 16:32 Order name: Basic Metabolic Panel EDMS 01/25 16:32 Order name: Basic Metabolic Panel EDMS 01/25 16:32 Order name: CBC with Automated Diff EDMS 01/25 16:32 Order name: CBC with Automated Diff EDMS 01/25 16:32 Order name: Lipid Profile EDMS 01/25 16:32 Order name: Lipid Profile EDMS 01/25 16:32 Order name: Troponin High Sensitivity EDMS 01/25 16:32 Order name: Troponin High Sensitivity EDMS 01/25 16:32 Order name: Troponin High Sensitivity EDMS 01/25 11:14 Order name: CT Aorta for Dissection; Complete Time: 13:17 rt 01/25 16:32 Order name: Echo with Doppler EDMS 01/25 11:14 Order name: EKG; Complete Time: 11:15 rt 01/25 16:32 Order name: CONS Physician Consult EDSD 01/25 11:14 Order name: Cardiac monitoring; Complete Time: 11:24 rt 01/25 11:14 Order name: EKG - Nurse/Tech; Complete Time: 11:24 rt 01/25 11:14 Order name: IV Saline Lock; Complete Time: 11:24 rt 01/25 11:14 Order name: Labs collected and sent; Complete Time: 11:24 rt 01/25 11:14 Order name: O2 Per Protocol; Complete Time: 11:24 rt 01/25 11:14 Order name: O2 Sat Monitoring; Complete Time: 11:24 rt EC:20 Rate is 100 beats/min. Rhythm is regular, Normal Sinus Rhythm with No ectopy, LASB. rt Left axis deviation noted. TX interval is normal. QRS interval is normal. QT interval is normal. No Q waves. Administered Medications: 11:30 Drug: Nitroglycerin Sublingual 0.4 mg Sublingual once; every five minute if needed x3 mb9 Route: Sublingual; 13:06 Follow up: Response: No adverse reaction mb9 11:33 Drug: Aspirin PO Chewable Tablet 324 mg PO once; 81 mg tablets x 4 Route: PO; mb9 13:06 Follow up: Response: No adverse reaction mb9 11:33 Drug: NS 0.9% IV 1000 ml IV at 1 bolus Per protocol; 1000 mL bolus Route: IV; Rate: 1 mb9 bolus; Site: right forearm; 13:06 Follow up: Response: No adverse reaction; IV Status: Completed infusion mb9 Disposition Summary: 01/26/24 14:17 Hospitalization Ordered Notes: Hospitalization Status: Observation rt Provider: Shana Sprague rt Location: Telemetry/MedSurg (observation) rt Condition: Stable rt Problem: new rt Symptoms: have improved rt Bed/Room Type: Standard rt Room Assignment: 220(01/26/24 16:34) eb Diagnosis - Chest pain, unspecified rt Forms: - Medication Reconciliation Form rt - SBAR form rt - Leadership Thank You Letter rt Signatures: Dispatcher [employer] Caren Little RN RN Nita Pena Mary Beth, RN RN mb9 Mike Massey MD MD rt Corrections: (The following items were deleted from the chart) 16:34 14:17 rt eb
--- NOTE | 2024-01-26 14:18 | ER ---
Nurse's Notes [facility] Name: Gigi Woods Age: 63 yrs Sex: Male : 1960 Arrival Date: 01/26/2024 Time: 10:52 Bed 18 Private MD: Diagnosis: Chest pain, unspecified Presentation: 01/25 11:09 Chief complaint: Patient states: chest pressure and high blood sugars that have been ss ongoing for a week and a half. Pt reports that he has not been on his regular medication regimen for over a month since his prescriptions ran out. Coronavirus screen: Client denies travel out of the [place] in the last 14 days. Ebola Screen: Patient denies exposure to infectious person. Patient denies travel to an Ebola-affected area in the 21 days before illness onset. Initial Sepsis Screen: Does the patient meet any 2 criteria? No. Patient's initial sepsis screen is negative. Does the patient have a suspected source of infection? No. Patient's initial sepsis screen is negative. Risk Assessment: Do you want to hurt yourself or someone else? Patient reports no desire to harm self or others. Onset of symptoms was January 15, 2024. 11:09 Method Of Arrival: Ambulatory ss 11:09 Acuity: GURMEET 2 ss Historical: - PMHx: 11:12 Diabetes mellitus; ss - Immunization history:: Adult Immunizations up to date. - Social history:: Smoking status: . - Family history:: not pertinent. Screenin:[address] [facility] ED Fall Risk Assessment (Adult) History of falling in the last 3 months, mb9 including since admission No falls in past 3 months (0 pts) Confusion or Disorientation No (0 pts) Intoxicated or Sedated No (0 pts) Impaired Gait No (0 pts) Mobility Assist Device Used No (0 pt) Altered Elimination No (0 pt) Score/Fall Risk Level 0 - 2 = Low Risk Oriented to surroundings, Maintained a safe environment, Educated pt \T\ family on fall prevention, incl call for assistance when getting out of bed. Abuse screen: Denies threats or abuse. Nutritional screening: No deficits noted. Tuberculosis screening: No symptoms or risk factors identified. Assessment: 11:12 General: Appears in no apparent distress. Behavior is calm, cooperative. Pain: mb9 Complains of pain in chest Pain radiates to back, right arm and left arm Pain currently is 8 out of 10 on a pain scale. Quality of pain is described as throbbing, Pain began suddenly, Is continuous. Neuro: Owens Agitation-Sedation Scale (RASS): 0 - Alert and Calm Level of Consciousness is awake, alert, obeys commands, Oriented to person, place, time, situation, Appropriate for age. Cardiovascular: Reports chest pain, shortness of breath, Patient's skin is warm and dry. Rhythm is sinus tachycardia. Cardiovascular: Heart tones S1 S2 present. Respiratory: Airway is patent Respiratory effort is even, unlabored, Respiratory pattern is regular, symmetrical. Respiratory: Breath sounds are clear bilaterally. GI: Abdomen is round non-distended, Bowel sounds present X 4 quads. Abd is soft and non tender X 4 quads. Patient currently denies nausea. : No signs and/or symptoms were reported regarding the genitourinary system. EENT: No signs and/or symptoms were reported regarding the EENT system. Derm: Skin is pink, warm \T\ dry. Musculoskeletal: Range of motion: intact in all extremities. 13:05 Reassessment: No changes from previously documented assessment. Patient and/or family mb9 updated on plan of care and expected duration. Pain level reassessed. Patient is alert, oriented x 3, equal unlabored respirations, skin warm/dry/pink. 14:11 Reassessment: No changes from previously documented assessment. Patient and/or family mb9 updated on plan of care and expected duration. Pain level reassessed. Patient is alert, oriented x 3, equal unlabored respirations, skin warm/dry/pink. 15:30 Reassessment: No changes from previously documented assessment. Patient and/or family mb9 updated on plan of care and expected duration. Pain level reassessed. Patient is alert, oriented x 3, equal unlabored respirations, skin warm/dry/pink. 16:45 Reassessment: No changes from previously documented assessment. Patient and/or family mb9 updated on plan of care and expected duration. Pain level reassessed. Patient is alert, oriented x 3, equal unlabored respirations, skin warm/dry/pink. 17:03 Reassessment: Attempted to call report to admitting nurse. States, she will call back. mb9 Vital Signs: 11:09 Temp 97.8(TE); Weight 99.79 kg; Height 5 ft. 9 in. ; ss 11:11 Pulse 105; Resp 18; Pulse Ox 100% on R/A; mb9 11:24 BP 151 / 95; mb9 13:05 Pulse 88; Resp 18; Pulse Ox 100% on R/A; mb9 13:28 BP 138 / 83; Pulse 79; Resp 18; Pulse Ox 97% on R/A; ld1 14:11 BP 145 / 75; Pulse 84; Resp 18; Pulse Ox 99% on R/A; mb9 15:30 BP 138 / 68; Pulse 88; Resp 18; Pulse Ox 100% on R/A; mb9 17:03 BP 134 / 74; Pulse 84; Resp 18; Pulse Ox 100% on R/A; mb9 11:09 Body Mass Index 32.49 (99.79 kg, 175.26 cm) ED Course: 10:55 Patient arrived in ED. im 10:56 Mike Massey MD is Attending Physician. rt 11:01 Arm band placed on. mb9 11:07 EKG done, by ED staff, reviewed by Mike Massey MD. mb9 11:07 Patient maintains SpO2 saturation greater than 95% on room air. mb9 11:10 Frida Bonner, RICO is Primary Nurse. mb9 11:10 Placed in gown. Bed in low position. Call light in reach. Side rails up X 1. Client mb9 placed on continuous cardiac and pulse oximetry monitoring. NIBP monitoring applied. media monitor on. 11:11 Triage completed. ss 11:24 Basic Metabolic Panel Sent. mb9 11:24 CBC with Diff Sent. mb9 11:24 LFT's Sent. mb9 11:24 Magnesium Sent. mb9 11:24 Troponin HS Sent. mb9 11:24 Inserted saline lock: 20 gauge in right forearm, using aseptic technique. mb9 12:00 Door closed. Noise minimized. Warm blanket given. mb9 12:59 CT Aorta for Dissection In Process Unspecified. EDMS 14:00 Diet: Patient given water. mb9 14:17 Shana Sprague MD is Hospitalizing Provider. rt 14:23 No provider procedures requiring assistance completed. Patient admitted, IV remains in mb9 place. 16:24 Provided Education on: need for admission . mb9 Administered Medications: 11:30 Drug: Nitroglycerin Sublingual 0.4 mg Sublingual once; every five minute if needed x3 mb9 Route: Sublingual; 13:06 Follow up: Response: No adverse reaction 9 11:33 Drug: Aspirin PO Chewable Tablet 324 mg PO once; 81 mg tablets x 4 Route: PO; mb9 13:06 Follow up: Response: No adverse reaction 9 11:33 Drug: NS 0.9% IV 1000 ml IV at 1 bolus Per protocol; 1000 mL bolus Route: IV; Rate: 1 mb9 bolus; Site: right forearm; 13:06 Follow up: Response: No adverse reaction; IV Status: Completed infusion mb9 Medication: 11:12 VIS not applicable for this client. [email or web address] Outcome: 14:17 Decision to Hospitalize by Provider. rt 17:16 Admitted to Med/surg accompanied by tech, room 220, with chart, Report called to arabella Loya RN 17:16 Condition: stable 17:16 Discharge instructions given to patient, Instructed on the need for admit, 17:20 Patient left the ED. arabella Signatures: Dispatcher [employer] EDMS Caren Acevedo, [place] RN Elena Staples RN RN ld1 Frida Bonner RN RN mb9 Mike Massey MD MD rt Anne Marie Huynh
--- NOTE | 2024-01-26 14:20 | P.HP ---
Certification for Inpatient Patient admitted to: Observation With expected LOS: <2 Midnights Patient will require the following post-hospital care: None Practitioner: I am a practitioner with admitting privileges, knowledge of patient current condition, hospital course, and medical plan of care. Services: Services provided to patient in accordance with Admission requirements found in Title 42 Section 412.3 of the Code of Federal Regulations Patient History Date of Service: 01/26/24 Reason for admission: Chest pain rule out acute coronary syndrome History of Present Illness: Patient 63-year-old gentleman who came to the hospital with chest discomfort. Patient had pain mainly the sternal region. It actually started in the back region, and it radiated to the front of the chest. Patient had no nausea or vomiting. Patient's history is positive for diabetes, hypertension, dyslipidemia, coronary artery disease with no intervention is needed. Patient states he had a cardiac catheterization done 7 years ago which revealed a 30% coronary lesion. Patient had has had a lap band performed as well about 15 years ago. Patient last had some water removed to loosen it about 4 years ago. Since that time he has never had any issues. Patient denies having any nausea or vomiting. Patient states he had numerous males including 2 brothers who have of cardiac disease under the age of 60. He is concerned that he is developed worsening cardiac disease. At this time, we will admit the patient to the hospital for observation for his cardiac status. CT imaging does show some thickening of the esophagus and the stomach region proximal to the Lap-Band. This will need to be addressed as an outpatient. - Past Medical/Surgical History -: Hypertension -: Diabetes -: Dyslipidemia -: Coronary artery disease Review of Systems 10-point ROS is otherwise unremarkable Physical Examination - Vital Signs Temperature: 98 F (reviewed) - Physical Exam General: Alert, In no apparent distress, Oriented x3 HEENT: Atraumatic, PERRLA, Mucous membr. moist/pink, EOMI, Sclerae nonicteric Neck: Supple, 2+ carotid pulse no bruit, No LAD, Without JVD or thyroid abnormality Respiratory: Clear to auscultation bilaterally, Normal air movement Cardiovascular: Regular rate/rhythm, Normal S1 S2, No murmurs Gastrointestinal: Normal bowel sounds, Soft and benign, Non-distended, No tenderness Musculoskeletal: No clubbing, No swelling, No tenderness Integumentary: No rashes Neurological: Normal gait, Normal speech, Normal strength at 5/5 x4 extr, Normal tone, Sensation intact, Cranial nerves 3-12 intact, Normal affect Lymphatics: No axilla or inguinal lymphadenopathy - Studies Laboratory Data (last 24 hrs) 01/26/24 01/26/24 11:22 11:22 WBC 10.00 Hgb 16.9 Hct 48.6 Plt Count 290 Sodium 136 Potassium 3.9 BUN 26 H Creatinine 1.19 Glucose 254 H Magnesium 2.1 Total Bilirubin 0.8 AST 6 L ALT 23 Alkaline Phosphatase 124 H Assessment & Plan - Problems (Diagnosis) (1) Chest pain, rule out acute myocardial infarction Current Visit: Yes Status: Acute (2) Hx of laparoscopic gastric banding Current Visit: Yes Status: Acute (3) History of esophagitis Current Visit: Yes Status: Acute (4) Family history of heart disease Current Visit: Yes Status: Acute (5) Hypertension Current Visit: Yes Status: Acute (6) Type 2 diabetes mellitus Current Visit: Yes Status: Acute (7) Coronary artery disease Current Visit: Yes Status: Acute - Plan -High-sensitivity troponin -Cardiology consultation -Echocardiogram -Repeat EKG -Lipid profile -Concrete Saw Operator regarding modifying risk for cardiac disease -PPI twice daily Discharge Plan: Home Plan to discharge in: 24 Hours - Advance Directives Does patient have a Living Will: No Does patient have a Durable POA for Healthcare: No - Code Status/Comfort Care Code Status Assessed: Yes Code Status: Full Code Critical Care: No Time Spent Managing PTS Care (In Minutes): 45
[2024-01-26] MEDS ORDERED: NITROGLYCERIN 0.4 MG/TAB SL PRN (16:24)
[2024-01-26] MEDS ORDERED: ACETAMINOPHEN 500 MG TAB PO PRN (16:24)
[2024-01-26] MEDS ORDERED: ALPRAZOLAM 0.25 MG TABLET PO PRN (16:24)
[2024-01-26] MEDS ORDERED: SODIUM CHLORIDE 0.9% 10ML INJ IV PRN (16:35)
[2024-01-26] MEDS: PANTOPRAZOLE 40 MG INJ IVP SCH (18:18)
[2024-01-26 18:55] VITALS: BMI 32.5
[2024-01-26] MEDS: METOPROLOL TAR 50 MG TAB PO SCH (20:31)
[2024-01-27 03:45] LABS: Absolute Basophils 0.1 K/uL (0-0.5); Absolute Eosinophils 0.2 K/uL (0-0.5); Absolute Lymphocytes (CBC) 2.1 K/uL (0.7-4.9); Basophils % 0.8 % (0-1.3); Eosinophils % 3.2 % (0-4.4); Hematocrit 43.6 % (39.6-49.0); Lymphocytes % 29.7 % (15.3-44.8); MCV 85.9 fL (80-100); MPV 8.3 fL (7.6-11.3); Platelets 250 thou/uL (152-406); RBC Red Blood Cell Count 5.08 M/uL (4.33-5.43)
[2024-01-27 04:08] LABS: Anion Gap 12.8 mEq/L (5.0-15.0); BUN Blood Urea Nitrogen 23 mg/dL (7-18); Bicarbonate 25 mEq/L (21-32); Glomerular Filtration Rate 76 ml/min (=/>90); Glucose Level 245 mg/dL (74-106); HDL Cholesterol 33 mg/dL (40-60); Potassium 3.8 mEq/L (3.5-5.1); Sodium Level 137 mEq/L (136-145); Troponin High Sensitivity 5.6 pg/mL (<58.9)
[2024-01-27 04:32] LABS: LDL, Direct 114 mg/dL (100-129)
[2024-01-27] MEDS: ASPIRIN EC 81 MG TAB PO SCH (08:40)
[2024-01-27] MEDS: ENOXAPARIN 40 MG/0.4 ML SQ SCH (08:40)
--- NOTE | 2024-01-27 08:58 | P.PN ---
Subjective Date of Service: 01/27/24 Chief Complaint: Chest pain rule out acute coronary syndrome Subjective: No new changes, Other (denies chest pain overnight) <Libra Blanchard - Last Filed: 01/27/24 08:58> Date of Service: 01/27/24 <Shana Sprague - Last Filed: 01/27/24 11:03> Review of Systems 10-point ROS is otherwise unremarkable Cardiovascular: Chest Pain <Libra Blanchard - Last Filed: 01/27/24 08:58> Physical Examination - Vital Signs Temperature: 97.2 F Blood Pressure: 135/76 Pulse: 77 Respirations: 20 Pulse Ox (%): 99 - Physical Exam General: Alert, In no apparent distress, Oriented x3 HEENT: Atraumatic, Normocephalic, PERRLA Neck: Supple, 2+ carotid pulse no bruit Respiratory: Clear to auscultation bilaterally, Normal air movement Cardiovascular: No edema, Normal pulses Capillary refill: <2 Seconds Gastrointestinal: Soft and benign Musculoskeletal: No clubbing, No swelling Integumentary: No rashes Neurological: Normal speech, Normal tone Lymphatics: No axilla or inguinal lymphadenopathy Rectal: Deferred - Studies Laboratory Data (last 24 hrs) 01/26/24 01/26/24 11:22 11:22 WBC 10.00 Hgb 16.9 Hct 48.6 Plt Count 290 Sodium 136 Potassium 3.9 BUN 26 H Creatinine 1.19 Glucose 254 H Magnesium 2.1 Total Bilirubin 0.8 AST 6 L ALT 23 Alkaline Phosphatase 124 H <Libra Blanchard - Last Filed: 01/27/24 08:58> - Studies Laboratory Data (last 24 hrs) 01/26/24 01/26/24 11:22 11:22 WBC 10.00 Hgb 16.9 Hct 48.6 Plt Count 290 Sodium 136 Potassium 3.9 BUN 26 H Creatinine 1.19 Glucose 254 H Magnesium 2.1 Total Bilirubin 0.8 AST 6 L ALT 23 Alkaline Phosphatase 124 H <Shana Sprague - Last Filed: 01/27/24 11:03> Assessment And Plan - Plan Assessment & Plan - Problems (Diagnosis) (1) Chest pain, rule out acute myocardial infarction Current Visit: Yes Status: Acute (2) Hx of laparoscopic gastric banding Current Visit: Yes Status: Acute (3) History of esophagitis Current Visit: Yes Status: Acute (4) Family history of heart disease Current Visit: Yes Status: Acute (5) Hypertension Current Visit: Yes Status: Acute (6) Type 2 diabetes mellitus Current Visit: Yes Status: Acute (7) Coronary artery disease Current Visit: Yes Status: Acute - Plan -High-sensitivity troponin -Cardiology consultation -Echocardiogram -Repeat EKG -Lipid profile -Fine Unhairer regarding modifying risk for cardiac disease -PPI twice daily Discharge Plan: Home Plan to discharge in: 24 Hours Discharge Plan: Home Plan to discharge in: 24 Hours <Libra Blanchard - Last Filed: 01/27/24 08:58> - Current Problems (Diagnosis) (1) Chest pain, rule out acute myocardial infarction Current Visit: Yes Status: Acute (2) Hx of laparoscopic gastric banding Current Visit: Yes Status: Acute (3) History of esophagitis Current Visit: Yes Status: Acute (4) Family history of heart disease Current Visit: Yes Status: Acute (5) Hypertension Current Visit: Yes Status: Acute (6) Type 2 diabetes mellitus Current Visit: Yes Status: Acute (7) Coronary artery disease Current Visit: Yes Status: Acute <Shana Sprague - Last Filed: 01/27/24 11:03> Date of Service: 01/27/24 Patient chart was reviewed and patient was seen and examined. Agree with the assessment and plan. Patient presented with chest pressure; troponins have been negative x 3. Patient admitted for chest pain to be ruled out for acute coronary syndrome. Continue with cardiac meds at this time and strict blood pressure and blood sugar control. Awaiting for cardiology recommendation. Once seen by cardiology further plan of care will be discussed. Possible discharge home <Shana Sprague - Last Filed: 01/27/24 11:03>
[2024-01-27] MEDS ORDERED: D10W 250 ML BAG IV PRN (09:02)
[2024-01-27] MEDS ORDERED: GLUCAGON 1 MG/VIAL IM PRN (09:02)
[2024-01-27] MEDS: lisinopriL 10 MG TAB PO SCH ×2 (10:00→11:00)
[2024-01-27] MEDS ORDERED: NEBIVOLOL HCL 5 MG TAB PO SCH (10:00)
[2024-01-27] MEDS: ESCITALOPRAM 20 MG TAB PO SCH ×2 (10:00→11:41)
[2024-01-27] MEDS: Dapagliflozin Propanediol [Farxiga] 10 MG Tablet PO SCH (10:59)
[2024-01-27] MEDS ORDERED: Dulaglutide [Trulicity] 0.75 MG/0.5 ML Pen.Injctr SQ SCH (11:00)
[2024-01-27] MEDS: NEBIVOLOL HCL 5 MG TAB PO SCH (11:00)
[2024-01-27] MEDS: HUMALOG MIX 75/25 100 UNITS/ML SQ SCH (11:53)
[2024-01-27] MEDS: INSULIN REGULAR (HUMAN) 100 UNIT/ML SQ SCH (11:53)
[2024-01-27 18:16] LABS: Protime INR 0.95
[2024-01-28 04:08] LABS: Absolute Eosinophils 0.2 K/uL (0-0.5); Absolute Lymphocytes (CBC) 1.9 K/uL (0.7-4.9); Basophils % 0.8 % (0-1.3); Eosinophils % 3.8 % (0-4.4); Hematocrit 43.5 % (39.6-49.0); Hemoglobin 15.1 g/dL (13.6-17.9); Lymphocytes % 31.5 % (15.3-44.8); MCV 84.5 fL (80-100); Platelets 232 thou/uL (152-406); RBC Red Blood Cell Count 5.16 M/uL (4.33-5.43)
[2024-01-28 04:58] LABS: Albumin 2.9 g/dL (3.4-5.0); Albumin/Globulin Ratio 0.9 (1.1-1.8); Anion Gap 9.7 mEq/L (5.0-15.0); Bilirubin Total 0.6 mg/dL (0.2-1.0); Globulin 3.1 g/dL (2.3-3.5)
[2024-01-28 05:00] LABS: Potassium 3.7 mEq/L (3.5-5.1)
[2024-01-28] MEDS ORDERED: NEBIVOLOL HCL 5 MG TAB PO SCH (09:00)
--- NOTE | 2024-01-28 10:49 | P.PN ---
Subjective Date of Service: 01/28/24 Chief Complaint: Chest pain rule out acute coronary syndrome Admitted for chest pain, pain scale 0 overnight - Physical Exam General: Alert, In no apparent distress, Oriented x3 HEENT: Atraumatic, Normocephalic, PERRLA Neck: Supple, 2+ carotid pulse no bruit Respiratory: Clear to auscultation bilaterally, Normal air movement Cardiovascular: No edema, Normal pulses Capillary refill: <2 Seconds Gastrointestinal: Soft and benign Musculoskeletal: No clubbing, No swelling Integumentary: No rashes Neurological: Normal speech, Normal tone Lymphatics: No axilla or inguinal lymphadenopathy Review of Systems per HPI Physical Examination - Vital Signs Temperature: 97.5 F Blood Pressure: 130/75 Pulse: 70 Respirations: 18 Pulse Ox (%): 97 Assessment And Plan - Plan Assessment plan Chest pain rule out [place] Essential hypertension CAD family history of heart disease Cardiology consult, telemetry, trend troponins, As needed analgesics, lipid panel Initial troponins negative Cholesterol elevated 411 CT chest rule out dissection IMPRESSION: No aortic aneurysm, aortic dissection, or pulmonary embolus identified. Moderate to severe esophageal wall and proximal gastric wall thickening concerning for gastritis/esophagitis. Note that the thickening is proximal to the gastric band which may be overly tightened. Endoscopy could better Plan for cardiac cath with Dr. Wagner History of laparoscopic banding chronic Severe esophagitis acute Resume PPI, Acute kidney injury unknown baseline BUN 23 creatinine 1.10 Hypocalcemia acute calcium 8.4 Diabetes type 2 Sliding scale insulin resume appropriate home meds Cardiac diet Full code DVT Lovenox Discharge Plan: Home - Code Status/Comfort Care Code Status: Full Code Critical Care: No Time Spent Managing PTS Care (In Minutes): 35
[2024-01-28] MEDS: NA CHLORIDE 0.9% 500 ML ONE (12:02)
--- NOTE | 2024-01-28 12:30 | ECHO ---
HEIGHT: 5 ft 9 in WEIGHT: 220 lb 0 oz DATE OF STUDY: 01/28/[address]: Shana Sprague MD 2-DIMENSIONAL: YES M.MODE: YES DOPPLER: YES COLOR FLOW: YES TDS: NO PORTABLE: YES DEFINITY: NO BUBBLE STUDY: NO DIAGNOSIS: CHEST PAIN, RULE OUT ACS CARDIAC HISTORY: CATHERIZATION: SURGERY: PROSTHETIC VALVE: PACEMAKER: MEASUREMENTS (cm) DIASTOLIC (NORMALS) SYSTOLIC (NORMALS) IVSd 1.0 (0.6-1.2) LA Diam 3.6 (1.9-4.0) LVEF 61% LVIDd 4.4 (3.5-5.7) LVIDs 3.0 (2.0-3.5) %FS 33% LVPWd 1.1 (0.6-1.2) Ao Diam 2.9 (2.0-3.7) 2 DIMENSIONAL ASSESSMENT: RIGHT ATRIUM: NORMAL LEFT ATRIUM: NORMAL RIGHT VENTRICLE: NORMAL LEFT VENTRICLE: NORMAL TRICUSPID VALVE: NORMAL MITRAL VALVE: NORMAL PULMONIC VALVE: NORMAL AORTIC VALVE: NORMAL PERICARDIAL EFFUSION: NONE AORTIC ROOT: NORMAL LEFT VENTRICULAR WALL MOTION: NORMAL DOPPLER/COLOR FLOW: NORMAL COMMENTS: 1. NORMAL LEFT VENTRICULAR SYSTOLIC AND DIASTOLIC FUNCTION. 2. LEFT VENTRICULAR EJECTION FRACTION 55-60%. 3. NORMAL WALL MOTION. TECHNOLOGIST: CARMEN KRUEGER
[2024-01-28] MEDS ORDERED: LIDOCAINE 1% 20 ML MDV ONE (12:43)
[2024-01-28] MEDS ORDERED: HEPA 1000U/500MLS 2,000 UNIT/1,000 ML BAG IV ONE (12:43)
[2024-01-28] MEDS ORDERED: VERAPAMIL HCL 10 MG/4 ML VIAL IV ONE (12:43)
[2024-01-28] MEDS ORDERED: MIDAZOLAM HCL 2 MG/2 ML INJ ONE (12:44)
[2024-01-28] MEDS ORDERED: FENTANYL CITR 100 MCG/2 ML ONE (12:44)
[2024-01-28] MEDS ORDERED: HEPARIN 10,000 UNIT/10 ML VIAL IV ONE (12:44)
[2024-01-28] MEDS ORDERED: HEPARIN 5000 UNIT/ML 1 ML VIAL ONE (12:44)
[2024-01-28] MEDS ORDERED: TICAGRELOR 90 MG TABLET PO ONE (12:44)
[2024-01-28] MEDS ORDERED: ASPIRIN 325 MG TAB ONE (12:45)
[2024-01-28] MEDS ORDERED: CLOPIDOGREL 75 MG TABLET ONE (12:45)
[2024-01-28] MEDS ORDERED: REGADENOSON 0.4 MG/5 ML SYR IV ONE (14:03)
[2024-01-28] MEDS ORDERED: ONDANSETRON 4 MG/2 ML VIAL ONE (14:39)
[2024-01-28] MEDS: NITROGLYCERIN 0.4 MG/TAB SL ONE (15:19)
--- NOTE | 2024-01-28 19:21 | CON ---
Date of Consultation: 01/28/2024 Reason For Consultation: Chest pain. History Of Present Illness: A 63-year-old male with history of diabetes, hypertension, dyslipidemia, and questionable history of coronary artery disease, presented with pressure-like chest pain, radiat es to his neck and his left upper extremity and jaw with activity and gets better with rest. It is g etting more frequent and he denies having any nausea, vomiting, or diaphoresis with it. Pain lasts f or few minutes and subsides and comes right back with activities. He was hospitalized. Cardiac enzy mes were negative, but he kept having chest pain with activities. Past Medical History: As outlined above in the HPI. Medication: Refer consultation sheet for detailed list. Allergies: NO KNOWN DRUG ALLERGIES. Family History: No premature coronary artery disease or cancer. Social History: Does not smoke or drink. Does not use any drugs. Review of Systems: All systems reviewed are negative so mentioned HPI. Physical Examination: Vital signs: Reviewed. Head and Neck: Pupils are equal, reactive to light. Intact eye movements. No JVD. No cervical lym phadenopathy. Neck: Supple. Thyroid is not enlarged. Lungs: Clear to auscultation bilaterally. No rhonchi, rales, or crackles. No accessory muscle use. Heart: Regular rate and rhythm. No extra sounds. Abdomen: Soft, nontender. Bowel sounds positive. No organomegaly. No masses or hernia. No rigidi ty or rebound. Extremities: No edema, clubbing, or cyanosis. Intact pulses. Skin: No rash. Neurologic: Alert, awake, oriented x3. No acute focal deficit. Investigations: BUN is 23, creatinine 1.1. Cardiac enzymes x3 are negative and his hemoglobin is 15 .1. Assessment/recommendation: 1.Unstable angina, typical symptoms, multiple risk factors. Keep n.p.o., plan for coronary angiogra m. Continue baby aspirin. 2.Dyslipidemia. Recommend Lipitor 40 mg at bedtime. 3.Hypertension. Blood pressure is controlled and please obtain an echocardiogram to further evaluat eStephanie PALOMO/MODL Voice ID: [id number] Report ID: [id number]
[2024-01-28] MEDS: TICAGRELOR 90 MG TABLET PO SCH (21:43)
[2024-01-28] MEDS: ATORVASTATIN 40 MG TAB PO SCH (21:43)
--- NOTE | 2024-01-29 01:24 | OP ---
Date of Procedure: 01/28/2024 Surgeon: TERESITA NY Procedures Performed: 1.Selective coronary angiogram. 2.Left heart catheterization. 3.FFR of proximal to mid LAD very low with significant value area of 0.67. 4.IVUS of proximal mid LAD, maximum lumen diameter is 3.5 mm. 5.PCI of severe proximal to mid LAD stenosis, I used 3.0 x 38 mm Synergy drug-eluting stent, post di lated proximal and mid to distal part using 3.5 x 50 mm NC balloon. Indication: Unstable angina. Access: Right radial artery 6-Liberian, closed with TR band. Complications: None. Bleeding: Less than 50 mL. Anesthesia: Total sedation time was 1 hour, used fentanyl and Versed. Description Of Procedure: After risks, benefits, and alternatives were explained, the patient agreed to procedure and signed informed consent. The [facility], prepped and draped in usual sterile fashion. Then, I accessed right radial artery using pedi atric micropuncture kit and placed 6-Liberian Slender sheath and then I took 5-Liberian tiger 4 catheter over J-wire into the aortic root across the aortic valve over J-wire, measured the LVEDP. Pullback d id not record any gradient and then engaged the left main, took standard views and then engaged RCA, took standard views, and gave systemic heparin to assure ACT level above 250 throughout the procedure and took EBU 3.5 guide over J-wire into the aortic root, engaged left main and took an FFR pressure wire into the aortic root, pressures were equalized and then advanced the wire into the LAD passing t he restenosis using Lexiscan. FFR was performed and it was very low, significant value area of 0.67 indicating severe LAD disease. Then, I took an IVUS catheter and evaluated the LAD proximal to mid a nd there was a large burden of soft plaque, no calcification, and the diameter of the vessel proximal ly is 3.5 mm. Subsequently, I took 3.0 x 20 compliant balloon, pre-dilated the lesion very well, les ions expanded and then I placed a long 3.0 x 38 mm Synergy drug-eluting stent over the areas of steno sis, stent expanded very well. Then, I took a 3.5 x 50 mm NC balloon, post dilated the proximal and mid portion of the stent. Excellent results. At the end of the procedure, there was PATRICIA-3 flow, 0% residual stenosis. Excellent results. I removed the wire and final angiogram was satisfactory and removed the guide and the sheath, placed TR band with good hemostasis. Findings: 1.Left main; long and normal. 2.LAD; proximal to mid diffuse 80% and then 70% to 80% stenosis. FFR 0.67, and there is significant atherosclerosis burden, soft plaque, status post successful IVUS guided PCI as above. Rest of the L AD appears to be normal. Normal diagonal branch. 3.Left circumflex; large and dominant and normal. 4.RCA; moderate size, nondominant with ostial 80% stenosis. 5.LVEDP elevated at 25 mmHg. Conclusions: 1.Severe proximal to mid LAD stenosis, proven by FFR and IVUS, status post successful PCI as above. 2.Severe ostial RCA stenosis, which will be staged, to be done in about 6 weeks. It is a nondominan t artery, but moderate size. I believe the patient will benefit from PCI, which we will do it at lat er time. Recommendations: 1.Aspirin, Brilinta, and high-dose statin. 2.The patient can be released tomorrow if no complications and follow up with me in the office in 1 week. We will plan for scheduling the PCI of the RCA in 6 weeks as an outpatient. /MERLE Voice ID: [id number] Report ID: [id number]
[2024-01-29 06:08] VITALS: O2SAT 98
--- NOTE | 2024-01-29 07:18 | P.PN ---
Subjective Date of Service: 01/29/24 Chief Complaint: Chest pain rule out acute coronary syndrome Admitted for chest pain, pain scale 0 overnight, status post left heart cath with stent placement - Physical Exam General: Alert, In no apparent distress, Oriented x3 HEENT: Atraumatic, Normocephalic, PERRLA Neck: Supple, 2+ carotid pulse no bruit Respiratory: Clear to auscultation bilaterally, Normal air movement Cardiovascular: No edema, Normal pulses Capillary refill: <2 Seconds Gastrointestinal: Soft and benign Musculoskeletal: No clubbing, No swelling Integumentary: No rashes Neurological: Normal speech, Normal tone Lymphatics: No axilla or inguinal lymphadenopathy Review of Systems PER HPI Physical Examination - Vital Signs Temperature: 98.6 F Blood Pressure: 139/80 Pulse: 85 Respirations: 18 Pulse Ox (%): 98 Assessment And Plan - Plan Assessment plan Chest pain rule out [place] Essential hypertension CAD family history of heart disease Cardiology consult, telemetry, trend troponins, As needed analgesics, lipid panel Initial troponins negative Cholesterol elevated 411 CT chest rule out dissection IMPRESSION: No aortic aneurysm, aortic dissection, or pulmonary embolus identified. Moderate to severe esophageal wall and proximal gastric wall thickening concerning for gastritis/esophagitis. Note that the thickening is proximal to the gastric band which may be overly tightened. Endoscopy could better 3/4 Plan for cardiac cath with Dr. [place]-PCI of the RCA in 6 weeks as an outpatient, Aspirin, Brilinta, and high-dose statin. PCI, LAD History of laparoscopic banding chronic Severe esophagitis acute Resume PPI, Acute kidney injury unknown baseline BUN 23 creatinine 1.10 Hypocalcemia acute calcium 8.4 Diabetes type 2 Sliding scale insulin resume appropriate home meds Cardiac diet Full code DVT Lovenox Discharge Plan: Home Plan to discharge in: 48 Hours - Code Status/Comfort Care Code Status: Full Code Critical Care: No Time Spent Managing PTS Care (In Minutes): 35
--- NOTE | 2024-01-29 07:19 | P.DS ---
Admission Date: 01/27/24 Discharge Date: 01/29/24 Disposition: ROUTINE DISCHARGE Discharge Condition: GOOD Reason for Admission: Chest pain rule out acute coronary syndrome Brief History of Present Illness: 63-year-old gentleman who came to the hospital with chest discomfort. Patient had pain mainly the sternal region. It actually started in the back region, and it radiated to the front of the chest. Patient had no nausea or vomiting. Patient's history is positive for diabetes, hypertension, dyslipidemia, coronary artery disease with no intervention is needed. Patient states he had a cardiac catheterization done 7 years ago which revealed a 30% coronary lesion. Patient had has had a lap band performed as well about 15 years ago. Patient last had some water removed to loosen it about 4 years ago. Since that time he has never had any issues. Patient denies having any nausea or vomiting. Patient states he had numerous males including 2 brothers who have of cardiac disease under the age of 60. He is concerned that he is developed worsening cardiac disease. At this time, we will admit the patient to the hospital for observation for his cardiac status. CT imaging does show some thickening of the esophagus and the stomach region proximal to the Lap-Band. This will need to be addressed as an outpatient. General: Alert, In no apparent distress, Oriented x3 HEENT: Atraumatic, PERRLA, Mucous membr. moist/pink, EOMI, Sclerae nonicteric Neck: Supple, 2+ carotid pulse no bruit, No LAD, Without JVD or thyroid abnormality Respiratory: Clear to auscultation bilaterally, Normal air movement Cardiovascular: Regular rate/rhythm, Normal S1 S2, No murmurs Gastrointestinal: Normal bowel sounds, Soft and benign, Non-distended, No tenderness Musculoskeletal: No clubbing, No swelling, No tenderness Integumentary: No rashes Neurological: Normal gait, Normal speech, Normal strength at 5/5 x4 extr, Normal tone, Sensation intact, Cranial nerves 3-12 intact, Normal affect Lymphatics: No axilla or inguinal lymphadenopathy Hospital Course: 61 year-old male patient with a past medical history of hypertension, hyperlipidemia, CAD, diabetes presented with chest pain. Was evaluated by cardiology, noted to have LAD stenosis after heart cath. Condition improved with cardiac stent. Patient will need to follow-up with cardiology for follow-up outpatient scheduling the PCI of the RCA in 6 [address] outpatient Dr[address] Hernandez. Patient tolerating diet, stable for discharge to home with follow-up appointment with primary care physician, follow up with cardiology outpatient. PROBLEM: Chest pain 3/4 LAD stenosis after heart cath. Condition improved with cardiac stent. 01/28/[address] Hernandez Severe proximal to mid LAD stenosis, proven by FFR and IVUS, status post successful PCI as above. 2. Severe ostial RCA stenosis, which will be staged, to be done in about 6 weeks. It is a nondominant artery, but moderate size. I believe the patient will benefit from PCI, which we will do it at later time. Recommendations: 1. Aspirin, Brilinta, and high-dose statin. 2. The patient can be released tomorrow if no complications and follow up with me in the office in 1 week. We will plan for scheduling the PCI of the RCA in 6 weeks as an outpatient. New medications discharged home on Brilinta 90 mg 1 p.o. twice daily Aspirin 81 mg daily Farxiga 1 tablet daily Lantus insulin 30 mg at 6 PM Continue home medicines as previously prescribed Follow-up with cardiology GOAL: Clear understanding of disease process INSTRUCTIONS: Physician Discharge Instructions: -Follow-up with PCP in 1 to 2 weeks -Please call Dr. Sprague at [phone] if any questions regarding hospital stay -Please call nursing station at [phone] if any nursing or medication questions -Return to the emergency room if symptoms worsen Diet: ADA, low sodium Activity: Fall precautions Vital Signs/Physical Exam: Temp Pulse Resp BP Pulse Ox 98.6 F 85 18 139/80 98 01/29/24 07:18 01/29/24 07:18 01/29/24 07:18 01/29/24 07:18 01/29/24 07:18 Laboratory Data at Discharge: WBC 6.20 thou/uL (4.3-10.9) 01/28/24 03:50 Hgb 15.1 g/dL (13.6-17.9) 01/28/24 03:50 Hct 43.5 % (39.6-49.0) 01/28/24 03:50 Plt Count 232 thou/uL (152-406) 01/28/24 03:50 PT 10.5 SECONDS (9.5-12.5) 01/27/24 17:54 INR 0.95 01/27/24 17:54 APTT 32.5 SECONDS (24.3-36.9) 01/27/24 17:54 APTT Cancelled 01/27/24 17:54 Sodium 139 mEq/L (136-145) 01/28/24 03:50 Potassium 3.7 mEq/L (3.5-5.1) 01/28/24 03:50 BUN 23 mg/dL (7-18) H 01/28/24 03:50 Creatinine 1.19 mg/dL (0.70-1.30) 01/28/24 03:50 Glucose 197 mg/dL (74-106) H 01/28/24 03:50 Magnesium 2.1 mg/dL (1.6-2.4) 01/26/24 11:22 Total Bilirubin 0.6 mg/dL (0.2-1.0) 01/28/24 03:50 AST 16 U/L (15-37) 01/28/24 03:50 ALT 18 U/L (16-61) 01/28/24 03:50 Alkaline Phosphatase 106 U/L (45-117) 01/28/24 03:50 Triglycerides 411 mg/dL (<150) H 01/27/24 02:59 Cholesterol 189 mg/dL (<200) 01/27/24 02:59 LDL Cholesterol Direct 114 mg/dL (100-129) 01/27/24 02:59 HDL Cholesterol 33 mg/dL (40-60) L 01/27/24 02:59 Cholesterol/HDL Ratio 5.73 01/27/24 02:59 Home Medications: Insulin Lispro MIX 75/25 [Humalog Mix 75/25*] 30 units SQ BID 01/27/24 Nebivolol HCl [Bystolic*] 5 mg PO DAILY 01/27/24 Aspirin [Aspirin EC 81 MG] 162 mg PO DAILY #60 tab 01/29/24 Atorvastatin Calcium [Lipitor] 40 mg PO BEDTIME #30 tab 01/29/24 Dapagliflozin Propanediol [Farxiga] 1 tab PO DAILY #30 tab 01/29/24 Dulaglutide [Trulicity] 0.75 mg SQ SEECOM #4 syr 01/29/24 Escitalopram [Lexapro*] 10 mg PO DAILY #30 tab 03/05/24 Insulin Glargine,Hum.rec.anlog [Lantus] 30 unit SQ DAILY 6PM #2 syr 01/29/24 Lisinopril [Zestril] 10 mg PO DAILY #30 tab 01/29/24 Metoprolol Tartrate [Lopressor] 25 mg PO BID #60 tab 01/29/24 Pantoprazole [Protonix Tab] 40 mg PO DAILY #30 tab 01/29/24 Ticagrelor [Brilinta*] 90 mg PO BID #60 tab 01/29/24 New Medications: Aspirin [Aspirin EC 81 MG] 162 mg PO DAILY #60 tab Ticagrelor [Brilinta*] 90 mg PO BID #60 tab Dapagliflozin Propanediol [Farxiga] 1 tab PO DAILY #30 tab Insulin Glargine,Hum.rec.anlog [Lantus] 30 unit SQ DAILY 6PM #2 syr Escitalopram [Lexapro*] 10 mg PO DAILY #30 tab Atorvastatin Calcium [Lipitor] 40 mg PO BEDTIME #30 tab Metoprolol Tartrate [Lopressor] 25 mg PO BID #60 tab Pantoprazole [Protonix Tab] 40 mg PO DAILY #30 tab Dulaglutide [Trulicity] 0.75 mg SQ SEECOM #4 syr Lisinopril [Zestril] 10 mg PO DAILY #30 tab Physician Discharge Instructions: -DC IV and DC home -Follow-up with PCP in 1 to 2 weeks -Follow-up with Cardiology in 1 to 2 weeks -Please call Dr. Sprague at [phone] if any questions regarding hospital stay -Please call nursing station at [phone] if any nursing or medication questions -Return to the emergency room if symptoms worsen Diet: AHA Activity: Fall precautions Followup: Zeeshan Oconnell MD [Primary Care Provider] - Time spent managing pt's care (in minutes): 55
[2024-01-29 12:05] VITALS: BP 130/75; TEMP 97.5
--- NOTE | 2024-01-29 17:07 | EKG ---
Test Date: 2024-01-28 Test Time: 16:21:40 Electric Motor Repairing Supervisor: RONALD MEASUREMENT RESULTS: Intervals: Rate: 64 NM: 150 QRSD: 94 QT: 410 QTc: 422 [place]: P: 55 NM: 150 QRS: -42 T: 31 INTERPRETIVE STATEMENTS: Normal sinus rhythm Left axis deviation Abnormal ECG Compared to ECG 01/26/2024 11:07:12 Left-axis deviation now present Left anterior fascicular block no longer present Electronically Signed On 01-29-24 17:03:29 SUBSCRIPTION AGENT by Rahul Hernandez
--- NOTE | 2024-01-29 17:16 | EKG ---
Test Date: 2024-01-26 Test Time: 11:07:12 Internet Sales Representative: MB MEASUREMENT RESULTS: Intervals: Rate: 100 TN: 144 QRSD: 94 QT: 340 QTc: 438 [place]: P: 59 TN: 144 QRS: -69 T: 56 INTERPRETIVE STATEMENTS: Normal sinus rhythm Left anterior fascicular block Abnormal ECG No previous ECG available for comparison Electronically Signed On 01-29-24 17:06:01 PRAWN TRAWLER HAND by Rahul Hernandez
== END 2024-01-29 11:34 | disposition home or self-care (01) | DRG 322 ==
LOC: ER 10:52 → 2ND 16:24 → OBSVTOIN 01-27 16:38
PROVIDERS: ADMIT Hospitalist; ATTEND Hospitalist
PROC: 027034Z Dilation of Coronary Artery, One Artery with Drug-eluting Intraluminal Device, Percutaneous Approach (ICD-10-PCS; principal; 2024-01-28)
PROC: 4A023N7 Measurement of Cardiac Sampling and Pressure, Left Heart, Percutaneous Approach (ICD-10-PCS; 2024-01-28)
PROC: B2111ZZ Fluoroscopy of Multiple Coronary Arteries using Low Osmolar Contrast (ICD-10-PCS; 2024-01-28)
DX: I25.110 Atherosclerotic heart disease of native coronary artery with unstable angina pectoris (principal); N17.9 Acute kidney failure, unspecified; E11.9 Type 2 diabetes mellitus without complications; I10 Essential (primary) hypertension; E78.5 Hyperlipidemia, unspecified; E83.51 Hypocalcemia; K20.90 Esophagitis, unspecified without bleeding; Z79.4 Long term (current) use of insulin; Z98.84 Bariatric surgery status; Z82.49 Family history of ischemic heart disease and other diseases of the circulatory system; Z79.82 Long term (current) use of aspirin; Z79.899 Other long term (current) drug therapy
CPT/HCPCS: 36415; 71275; 74175; 76937; 80048; 80053; 80061; 80076; 82947; 83735; 84484; 85025; 85347; 85610; 85730; 92928; 92978; 93005; 93306; 93458; 93571; 96360; 96361; 99152; 99153; 99285; C1725; C1769; C1893; C9113; G0378; J1644; J1650; J1815; J2001; J2250; J2405; J2785; J3010; J7030; J7040; Q9967

== ENCOUNTER 2024-02-25 10:48 | Day surgery (SDC) | payer BC ==
--- NOTE | 2024-02-22 11:49 | EKG ---
Test Date: 2024-02-22 Test Time: 11:38:13 Quality Management Nurse: JUANA MEASUREMENT RESULTS: Intervals: Rate: 60 AK: 162 QRSD: 102 QT: 424 QTc: 424 [place]: P: 57 AK: 162 QRS: -21 T: 33 INTERPRETIVE STATEMENTS: Normal sinus rhythm Normal ECG Compared to ECG 01/28/2024 16:21:40 Left-axis deviation no longer present Electronically Signed On 02-22-24 11:48:16 CDT by Rahul Hernandez
[2024-02-22 11:50] LABS: Absolute Eosinophils 0.1 K/uL (0-0.5); Absolute Lymphocytes (CBC) 1.4 K/uL (0.7-4.9); Absolute Monocytes 0.5 K/uL (0.1-1.3); Absolute Neutrophil 4.8 K/uL (1.8-8.0); Basophils % 0.7 % (0-1.3); Hematocrit 45.6 % (39.6-49.0); Hemoglobin 15.6 g/dL (13.6-17.9); Lymphocytes % 20.6 % (15.3-44.8); MCH 29.9 pg (27.0-35.0); MCHC 34.3 g/dL (32.0-36.0); MCV 87.2 fL (80-100); MPV 7.7 fL (7.6-11.3); Monocytes % 7.1 % (3.3-12.3); Neutrophils % 69.6 % (41.7-73.7); Nucleated Red Blood Cells % 0.1 % (0-0); Platelets 271 thou/uL (152-406); RBC Red Blood Cell Count 5.23 M/uL (4.33-5.43); Red Cell Distribution Width 13.2 % (12.1-15.2)
[2024-02-22 12:00] LABS: PT Prothrombin Time 10.5 SECONDS (9.5-12.5); PTT, Activated Partial Thromb 33.8 SECONDS (24.3-36.9); Protime INR 0.95
--- NOTE | 2024-02-22 12:02 | RAD REPORT ---
EXAM DESCRIPTION: RAD - Chest Pa And Lat (2 Views) - 02/22/2024 11:48 am CLINICAL HISTORY: pre-cath procedure Chest pain. COMPARISON: No comparisons TECHNIQUE: PA and lateral views of the chest were obtained. FINDINGS: The lungs are hyperexpanded compatible with COPD. The heart is upper limit of normal in si ze. No fracture or aggressive bony process. IMPRESSION: COPD without acute process identified. The USPSTF recommends annual screening for lung cancer with low-dose CT (LDCT) in adults aged 50 to 8 0 years who have a 20 pack-year smoking history and currently smoke or have quit within the past 15 y ears.
[2024-02-22 12:05] LABS: Anion Gap 8.8 mEq/L (5.0-15.0); Potassium 3.8 mEq/L (3.5-5.1)
[2024-02-25] MEDS ORDERED: NA CHLORIDE 0.9% 500 ML ONE (10:50)
[2024-02-25 12:58] VITALS: TEMP 97.5
[2024-02-25] MEDS ORDERED: LIDOCAINE 1% 20 ML MDV ONE (13:11)
[2024-02-25] MEDS ORDERED: VERAPAMIL HCL 10 MG/4 ML VIAL IV ONE (13:11)
[2024-02-25] MEDS ORDERED: FENTANYL CITR 100 MCG/2 ML ONE (13:11)
[2024-02-25] MEDS ORDERED: HEPA 1000U/500MLS 2,000 UNIT/1,000 ML BAG IV ONE (13:11)
[2024-02-25] MEDS ORDERED: HEPARIN 10,000 UNIT/10 ML VIAL IV ONE (13:12)
[2024-02-25] MEDS ORDERED: ATROPINE SULF 1 MG/10 ML SYR IV ONE (13:12)
[2024-02-25] MEDS ORDERED: MIDAZOLAM HCL 2 MG/2 ML INJ ONE (13:12)
[2024-02-25] MEDS ORDERED: HEPARIN 5000 UNIT/ML 1 ML VIAL ONE (13:12)
[2024-02-25] MEDS ORDERED: TICAGRELOR 90 MG TABLET PO ONE (13:12)
[2024-02-25] MEDS ORDERED: CLOPIDOGREL 75 MG TABLET ONE (13:13)
[2024-02-25] MEDS ORDERED: ASPIRIN 325 MG TAB ONE (13:13)
--- NOTE | 2024-02-25 15:09 | OP ---
Date of Procedure: 02/25/2024 Surgeon: TERESITA [place] Procedures Performed: 1.Selective coronary angiogram. 2.Left heart catheterization. Indication: Coronary artery disease with chest pain and known history of RCA disease. Access: Right radial artery 6-Greenlandic closed with TR band. Complications: None. Bleeding: Less than 20 mL. Anesthesia: Total sedation time was 30 minutes. Description Of Procedure: After risks, benefits, and alternatives were explained, the patient agreed to procedure and signed informed consent. The patient was brought into the cardiac catheterization laboratory, prepped and draped in usual sterile fashion. Then, I accessed right radial artery using pediatric micropuncture kit and placed a 6-Green[place]ic Slender sheath, took a 6-Green[place]ic JR4 guide into the aortic root over a J-wire, engaged the RCA, took standard views and then exchanged for a 5-Green[place]ic Tig er 4.0 catheter, engaged the left main, took standard views and catheter was pushed over the wire int o the LV, measured the LVEDP. Pullback did not record any gradient. Then I removed the catheter and the sheath, placed TR band with good hemostasis. Findings: 1.Left main; large and normal. 2.LAD; large vessel with patent proximal to mid LAD stent. Rest of the LAD with luminal irregularit ies. Diagonal branches appears to be rather small and with luminal irregularities. 3.Left circumflex; moderate-sized vessel with luminal irregularities. 4.RCA, moderate size, with ostial 50% to 60% and I did not feel that he needs PCI, so left for medic al management. Conclusion: Moderate RCA stenosis. Plan: Medical management. SR/MODL Voice ID: [id number] Report ID: [id number]
[2024-02-25 17:17] VITALS: BP 151/80; O2SAT 97
== END 2024-02-25 17:00 | disposition home or self-care (01) ==
LOC: CCL 10:48
PROVIDERS: ATTEND Internal Medicine
DX: I25.10 Atherosclerotic heart disease of native coronary artery without angina pectoris (principal); I73.9 Peripheral vascular disease, unspecified; I25.2 Old myocardial infarction; I10 Essential (primary) hypertension; E11.9 Type 2 diabetes mellitus without complications; E78.5 Hyperlipidemia, unspecified; R09.89 Other specified symptoms and signs involving the circulatory and respiratory systems; Z95.5 Presence of coronary angioplasty implant and graft; Z79.4 Long term (current) use of insulin; Z79.84 Long term (current) use of oral hypoglycemic drugs; Z79.899 Other long term (current) drug therapy; Z82.49 Family history of ischemic heart disease and other diseases of the circulatory system
CPT/HCPCS: 93005; 85025; 80048; 36415; 85610; 82947; 85730; 71046; 93458; 76937; C1893; Q9966; J1644; J2001; J2250; J3010; J7040; 99152; 99153; J0461